=== PATIENT | female | born 1990 | race Caucasian/White ===

== ENCOUNTER → 2022-09-10 11:26 | Outpatient (BNVA) | payer OTHER, SELFPAY | PROVIDERS: Visit Provider Nurse Practitioner Psychiatric/Mental Health | DX: Z03.89 Encounter for observation for other suspected diseases and conditions ruled out (principal); Z51.81 Encounter for therapeutic drug level monitoring | CPT/HCPCS: 80307; 81025 ==

== ENCOUNTER 2025-08-17 12:49 | Emergency (ER) | payer BC, MEDICAID, SELFPAY ==
[2025-08-17 12:54] VITALS: BP 102/76; PULSE 80; TEMP 36.8; O2SAT 98
--- OUTSIDE RECORDS SUMMARY | 2025-08-17 12:55 | XMS_ITS | Encounter Summary ---
Author Organization [facility] Address [address] [place] [address] Care Team Providers Care Coordinator Cardiopulmonary Services Name Role Phone Provider, No Pcp Primary Care Provider Unavailab le Encounter Details Date Type Department Care Team (Latest Contact Info) Description 08/16/2025 Travel Social History Tobacco Use Types Packs/Day Years Used Date Smoking Tobacco: Some Days Cigarettes Smokeless Tobacco: Never AUDIT-C Answer Date Recorded Q1: How often do you have a drink containing alc ohol? 2-4 times a month 08/02/2025 Q2: How many drinks containi ng alcohol do you have on a typical day when you are drinking? 3 or 4 08/02/2025 Q3: How often do you have si x or more drinks on one occasion? Never 08/02/2025 Overall Financial Resource Strain (CARDIA) Answe r Date Recorded How hard is it for you to pa y for the very basics like food, housing, medical care, and heating? Not hard at all 08/02/2025 [facility] - Occupational Stress Questionnaire Answer Date Recorded Do you feel stress - tense, restless, nervous, or anxious, or unable to sleep at night because your mind is troubled all the time - these days? Not at all 08/02/2025 Hunger Vital Sign Answer Date Recorded Within the past 12 months, y ou worried that your food would run out before you got the money to buy more. Never true 08/02/20 25 Within the past 12 months, t he food you bought just didn't last and you didn't have money to get more. Never true 08/02/2025 PRAPARE - Transportation Answer Date Re corded In the past 12 months, has l ack of transportation kept you from medical appointments or from getting medications? No 07/18 In the past 12 months, has l ack of transportation kept you from meetings, work, or from getting things needed for daily living? No 08/02/2025 Housing Stability Vital Sign Answer Markell e Recorded In the last 12 months, was t here a time when you were not able to pay the mortgage or rent on time? No 08/02/2025 In the past 12 months, how m any times have you moved where you were living? 1 08/02/2025 At any time in the past 12 m [facility] [place] were you homeless or living in a long-term (including now)? No 08/02/2025 Comments No Sex and Gender Information Value Date Recorded Sex Assigned at Not on file Legal Sex Female 7:00 PM CDT Gender Identity Not on file Sexual Orientation Not on file documented as of this encounter Functional Status * Is person deaf or have serious hearing difficulty? Answer Date of Assessment Author No 07/31/2025 12:44 AM CDT Nakita Morin RN * Is person blind or have serious difficulty seeing? Answer Date of Assessment Author No 07/31/2025 12:44 AM CDT Nakita Morin RN * Does person have serious difficulty walking/climbing stairs? Answer Date of Assessment Author No 07/31/2025 12:44 AM ZENAIDAT Nakita Morin RN * Does person have difficulty dressing/bathing? Answer Date of Assessment Author No 07/31/2025 12:44 AM ZENAIDAT Nakita Morin RN * Does person have difficulty doing errands alone? Answer Date of Assessment Author No 07/31/2025 12:44 AM ZENAIDAT Nakita Morin RN documented as of this encounter Mental Status * Does person have difficulty concentrating/remembering/making decisions? Answer Entry Date Author No 07/31/2025 12:44 AM Nakita Borja RN documented in this encounter Plan of Treatment Upcoming Encounters Date Type Department Care Team (Late st Contact Info) Description 09/01/2025 12:00 PM CDT Clinical Support [facility] - General Surgery [address] [place] [address], [place] [address] documented as of this encounter Visit Diagnoses Not on filedocumented in this encounter Care Teams Coordinator Cardiopulmonary Services Relationship Specialty Start Date End Date Provider, No Pcp PCP - General 07/30/25 documented as of this encounter
--- OUTSIDE RECORDS SUMMARY | 2025-08-17 12:55 | XMS_ITS | Clinical Summary ---
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 hypoattenuating hepatic lesion is too small to characterize, but likely represents a hepatic cyst. Gallbladder and Bile Ducts: Dense material is seen at the gallbladder fundus by a fold (image 58, series 3), may represent minimal sludge or stone. No gallbladder wall thickening. Spleen: Normal. Pancreas: Normal. Adrenals: Normal. Kidneys: Nonobstructive stone in the left kidney. Otherwise, the kidneys enhance symmetrically. No hydronephrosis. Gastrointestinal: Oral contrast material opacifies the stomach, multiple loops of small bowel, the ascending colon, and rectum. There is no evidence of oral contrast extravasation. Bowel loops are nondilated. There is colonic diverticulosis without diverticulitis. Normal appendix. Mesentery/Peritoneum/Retroperitoneum: Redemonstrated mesenteric contusions in the central and right lower quadrant mesentery (images 81, 99 and 106, series 3), not significant changed. There is small volume hemoperitoneum in the pelvis, increased in size when compared to prior. No free air. Bladder: Opacified with contrast material. Reproductive Organs: The uterus is normal. Vasculature: No vascular abnormality is present. Bones: Bone windows demonstrate no suspicious lytic or blastic lesions. The visible osseous structures are intact. Soft tissues: Soft tissue contusions along the lower ventral abdominal wall and right flank. Small fat-containing umbilical hernia. Procedure Note Aliya Garcia MD - 07/31/2025 PROCEDURE: CT ABDOMEN PELVIS W CONTRAST, DATE/TIME OF EXAM: 07/31/2025 4:27 AM, LOCATION [facility] INDICATION: T14.90XA: Trauma ADDITIONAL CLINICAL INFORMATION: Ordering Provider Reason For Exam: Blunt abdominal trauma. Technologist Note: Additional: COMPARISON: 07/30/2025 CT chest abdomen pelvis TECHNIQUE: CT of the abdomen and pelvis was performed following the uneventful administration of oral contrast and 100 mL of Isovue 370 intravenous contrast according to standard protocol. Findings: Lower Chest: Normal. Liver: A subcentimeter hypoattenuating hepatic lesion is too small to characterize, but likely represents a hepatic cyst. Gallbladder and Bile Ducts: Dense material is seen at the gallbladder fundus by a fold(image 58, series 3), may represent minimal sludge or stone. No gallbladderwall thickening. Spleen: Normal. Pancreas: Normal. Adrenals: Normal. Kidneys: Nonobstructive stone in the left kidney. Otherwise, the kidneys enhance symmetrically. No hydronephrosis. Gastrointestinal: Oral contrast material opacifies the stomach, multiple loops of small bowel, the ascending colon, and rectum. There is no evidence of oral contrast extravasation. Bowel loops are nondilated. There is colonic diverticulosis without diverticulitis. Normal appendix. Mesentery/Peritoneum/Retroperitoneum: Redemonstrated mesenteric contusions in the central and right lower quadrant mesentery (images 81, 99 and 106, series 3), not significant changed. There is small volume hemoperitoneum in the pelvis, increasedin size when compared to prior. No free air. Bladder: Opacified with contrast material. Reproductive Organs: The uterus is normal. Vasculature: No vascular abnormality is present. Bones: Bone windows demonstrate no suspicious lytic or blastic lesions. The visible osseous structures are intact. Soft tissues: Soft tissue contusions along the lower ventral abdominal wall and right flank. Small fat-containing umbilical hernia. Impression: 1.Mesenteric contusions in the central and right lower quadrantmesentery, not significantly changed, with interval mild increase in size of small volume hemoperitoneum within the pelvis. No pneumoperitoneum. 2.Oral contrast scattered throughout the GI tract without evidence of contrast extravasation. No evidence of bowel ischemia. > Dictated by Randal Rivas MD (vice president tax). > Dictated by Cloth Packer Stephanie Treadwell MD have personally reviewed and interpreted this examination/study. > Interpreting Provider: Stephanie Garcia MD on 07/31/2025 11:28 AM Kike Busch MD CT ORDERABLES Final Result * (ABNORMAL) URINALYSIS REFLEX TO MICROSCOPIC NO CULTURE (07/31/2025 4:[address] [facility]) Color UA Yellow Yellow, Straw 07/31/2025 4:32 AM [facility] Clarity UA Clear Clear 07/31/2025 4:32 AM [facility] Glucose UA Normal Normal 07/31/2025 4:32 AM [facility] Bilirubin UA Negative Negative 07/31/2025 4:32 AM [facility] Ketone UA Negative Negative 07/31/2025 4:32 AM [facility] Specific [place] UA 1.037(H) 1.005 - 1.030 07/31/2025 4:32 AM [facility] Blood UA 1+(A) Negative 07/31/2025 4:32 AM [facility] pH UA 6.0 5.0 - 8.0 07/31/2025 4:32 AM [facility] Protein UA Negative Negative 07/31/2025 4:32 AM [facility] Urobilinogen UA Normal Normal mg/dL 025 4:32 AM [facility] Nitrite UA Negative Negative 07/31/2025 4:32 AM [facility] Leukocyte Esterase UA Negative Negative 07/31/2025 4:32 AM [facility] RBC UA 21-50(A) 0 - 5 # /hpf 07/31/2025 4:32 AM [facility] WBC UA 0-5 0 - 5 # /hpf 07/31/2025 4:32 AM [facility] Bacteria UA None Seen None Seen 07/31/2025 4:32 AM [facility] Squamous Epithelial Cells 6-10 0 - 5 /hpf 07/31/2025 4:32 AM [facility] Mucus UA 1+ /LPF 07/31/2025 4:32 AM [facility] Hyaline Casts 0-2 0 - 2 /LPF 07/31/2025 4:32 AM [facility] Urine URINE SPECIMEN OBTAINED BY CLEAN CATCH PROCEDURE / Unknown Collection / Unknown 07/31/2025 4:02 AM CDT 07/31/2025 4:06 AM CDT Narrative [facility] - 07/31/2025 4:32 AM CDT Trino Mead DO LAB - URINALYSIS ORDERABLES Final Result [facility] [address] [place] [address], [facility] [phone] * (ABNORMAL) URINE DRUG SCREEN IMMUNOASSAY (07/31/2025 4:02 AM CDT) [facility] Amphetamines Screen Urine Negative Negative : < 1000 ng/mL 07/31/2025 4:34 AM [facility] Barbiturates Screen Urine Negative Negative : < 200 ng/mL 07/31/2025 4:34 AM [facility] Benzodiazepine Screen Urine Negative Negative : < 200 ng/mL 07/31/2025 4:34 AM [facility] Opiates Urine Negative Negative : < 300 ng/mL 07/31/2025 4:34 AM [facility] Cocaine Metabolites Urine Negative Negative : < 300 ng/mL 07/31/2025 4:34 AM [facility] Phencyclidine Screen Urine Negative Negative : < 25 ng/ml 07/31/2025 4:34 AM [facility] Cannabinoids Screen Urine Negative Negative : <50 ng/mL 07/31/2025 4:34 AM [facility] Methadone Screen Urine Negative Negative : < 300 ng/mL 07/31/2025 4:34 AM [facility] Fentanyl Screen Urine Positive(A) Negative : <1.5 ng/mL 07/31/2025 4:34 AM [facility] Comment:Positive urine fenta nyl screening results should be confirmed by another generally accepted non-immunological method such as gas chromatography or mass spectrometry. Urine URINE / Unknown Collection / Unknown 07/31/2025 4:02 AM CDT 07/31/2025 4:07 AM CDT Narrative [facility] - 07/31/2025 4:34 AM CDT The Urine Toxicology Screening Panel does not screen for Propoxyphene, Meprobamate, Carisoprodol, Trazodone, [id number] medications and/or volatiles (Acetone, Isopropanol, Methanol or Ethylene Glycol). Ethanol, Salicylate, Acetaminophen, Tricyclic Antidepressants and several therapeutic drugs may be individually assayed in serum or plasma specimen. Toxicology testing by the [facility] is an aid to medical diagnosis and treatment of patients. No documented chain of custody was maintained. Results are intended to be used for clinical purposes only. Kike Busch MD LAB - URINE CHEMISTRY ORDERABL ES Final Result Performing Organization Address City/[facility]/ZIP Co de Phone Number [facility] [address] [place] [address], [facility] [phone] * BLOOD TYPE VERIFICATION (07/31/2025 12:18 AM CDT) ABO Rh A POS 07/31/2025 1:2 3 AM CDT [facility] Blood Bank BLOOD SPECIMEN / Unknown Lab Venipuncture / Unknown 07/31/2025 12:18 AM CDT 07/31/2025 12:38 AM CDT Trino Mead DO LAB - BLOOD BANK ORDERABLES Final Result Performing Organization Address [facility] de Phone Number [facility] [address] [place] [address], [facility] [phone] * CT CHEST ABDOMEN PELVIS W CONT - Abdomen-pelvis trauma, blunt or penetrating (07/30/2025 7:44 PM CDT) Anatomical Region Laterality Modality Chest, Abdomen, Pelvis Computed Tomography 07/30/2025 7:54 PM CDT Impressions 07/30/2025 11:25 PM CDT Impression: 1.Mesenteric fat stranding in the mid abdomen around mesenteric vessels (Series 4, Image 89) and lower abdomen (Series 4, Image 106). Small volume interloop fluid in the right lower quadrant (Series 4, Image 95) (Series 9, Image 64). Small volume fluid within the pelvis measuring higher than simple fluid density. Findings concerning for mesenteric contusion/injury. 2.Suggestion of nondisplaced fractures of the left 8th-10th ribs at the costochondral junctions. Recommend correlation with point tenderness. 3.Contusion within the lower ventral abdominal wall and right flank soft tissues. Preliminary findings were discussed with the patient's care provider, Dr. Cardona by Dr. Sanders via telephone at 8:28 PM on 07/30/2025 with readback comprehension and verification. > Dictated by Sanjuana Sanders MD > Dictated by Cloth Packer IStephanie MD have personally reviewed and interpreted this examination/study. > Interpreting Provider: Stephanie Garcia MD on 07/30/2025 11:25 PM Narrative 07/30/2025 11:25 PM CDT PROCEDURE: CT CHEST ABDOMEN PELVIS W CONT, DATE/TIME OF EXAM: 07/30/2025 7:45 PM, LOCATION [facility] INDICATION: T14.90XA: Trauma COMPARISON: None. TECHNIQUE: CT of the chest, abdomen, and pelvis was performed after the uneventful administration of 100 mL of Isovue 370 intravenous contrast according to standard protocol. Findings: Chest: Lower Neck and Axillae: Normal. Lungs: Bilateral dependent atelectasis. No suspicious pulmonary nodules are identified. No pleural fluid or pneumothorax is present. Heart and Pericardium: The cardiac chambers are normal in size. No pericardial fluid or thickening is present. Mediastinum and Susi: No mediastinal hemorrhage is present. No enlarged lymph nodes are present. Thoracic Vasculature: No vascular abnormality is present. Abdomen/pelvis: Liver: Multiple subcentimeter hypoattenuating hepatic lesions are too small to characterize, but likely represent hepatic cysts. Gallbladder and Bile Ducts: Normal. Spleen: Normal. Pancreas: Normal. Adrenals: Normal. Kidneys: A subcentimeter hypoattenuating lesion in the left kidney is too small to characterize, but likely represents a cyst. A 2 mm left superior pole nonobstructive calculus is present. Gastrointestinal/Mesentery/Peritoneum: Mesenteric fat stranding in the mid abdomen around mesenteric vessels (Series 4, Image 89) and lower abdomen (Series 4, Image 106). Small volume interloop fluid in the right lower quadrant (Series 4, Image 95) (Series 9, Image 64). Small volume fluid within the pelvis measuring higher than simple fluid density. Normal appendix. Multiple prominent mesenteric lymph nodes. Diverticulosis without diverticulitis. Bladder: Normal. Reproductive Organs: Uterus is normal. Abdominal Vasculature: No vascular abnormality is present. Bones: Bone windows demonstrate no suspicious lytic or blastic lesions. The visible osseous structures are intact. Suggestion of nondisplaced fractures of the left 8th-10th ribs at the costochondral junctions. Recommend correlation with point tenderness. Soft tissues: Contusion within the lower ventral abdominal wall and right flank soft tissues. Small fat-containing umbilical hernia. Procedure Note Aliya Garcia MD - 07/30/2025 PROCEDURE: CT CHEST ABDOMEN PELVIS W CONT, DATE/TIME OF EXAM:07/30/2025 7:45 PM, LOCATION [facility] INDICATION: T14.90XA: Trauma COMPARISON: None. TECHNIQUE: CT of the chest, abdomen, and pelvis was performed after the uneventful administration of 100 mL of Isovue 370 intravenous contrast according to standard protocol. Findings: Chest: Lower Neck and Axillae: Normal. Lungs: Bilateral dependent atelectasis. No suspicious pulmonary nodules are identified. No pleural fluid or pneumothorax is present. Heart and Pericardium: The cardiac chambers are normal in size. No pericardial fluid orthickening is present. Mediastinum and Susi: No mediastinal hemorrhage is present. No enlarged lymph nodes arepresent. Thoracic Vasculature: No vascular abnormality is present. Abdomen/pelvis: Liver: Multiple subcentimeter hypoattenuating hepatic lesions are too small to characterize, but likely represent hepatic cysts. Gallbladder and Bile Ducts: Normal. Spleen: Normal. Pancreas: Normal. Adrenals: Normal. Kidneys: A subcentimeter hypoattenuating lesion in the left kidney is too smallto characterize, but likely represents a cyst. A 2 mm left superior pole nonobstructive calculus is present. Gastrointestinal/Mesentery/Peritoneum: Mesenteric fat stranding in the mid abdomen around mesenteric vessels (Series 4, Image 89) and lower abdomen (Series 4, Image 106). Smallvolume interloop fluid in the right lower quadrant (Series 4, Image 95) (Series9, Image 64). Small volume fluid within the pelvis measuring higher than simple fluid density. Normal appendix. Multiple prominent mesentericlymph nodes. Diverticulosis without diverticulitis. Bladder: Normal. Reproductive Organs: Uterus is normal. Abdominal Vasculature: No vascular abnormality is present. Bones: Bone windows demonstrate no suspicious lytic or blastic lesions. The visible osseous structures are intact. Suggestion of nondisplacedfractures of the left 8th-10th ribs at the costochondral junctions. Recommend correlation with point tenderness. Soft tissues: Contusion within the lower ventral abdominal wall and right flank soft tissues. Small fat-containing umbilical hernia. Impression: 1.Mesenteric fat stranding in the mid abdomen around mesenteric vessels (Series 4, Image 89) and lower abdomen (Series 4, Image 106). Smallvolume interloop fluid in the right lower quadrant (Series 4, Image 95) (Series9, Image 64). Small volume fluid within the pelvis measuring higher than simple fluid density. Findings concerning for mesentericcontusion/injury. 2.Suggestion of nondisplaced fractures of the left 8th-10th ribs at the costochondral junctions. Recommend correlation with point tenderness. 3.Contusion within the lower ventral abdominal wall and right flank soft tissues. Preliminary findings were discussed with the patient's care provider,Dr. Cardona by Dr. Sanders via telephone at 8:28 PM on 07/30/2025 with readback comprehension and verification. > Dictated by Sanjuana Sanders MD > Dictated by Cloth Packer IStephanie MD have personally reviewed and interpreted this examination/study. > Interpreting Provider: Stephanie Garcia MD on 07/30/2025 11:25 PM us Kike Busch MD CT ORDERABLES Final Result * CT LUMBAR SPINE WO CONTRAST - T/L-spine trauma, Spine fracture (07/30/2025 7:44 PM CDT) Anatomical Region Laterality Modality Spine Computed Tomogra phy 07/30/2025 7:48 PM CDT Impressions 07/30/2025 9:23 PM CDT IMPRESSION: 1.No acute intracranial hemorrhage, midline shift, or significant mass effect. 2.No evidence of acute fracture in the cervical, thoracic, or lumbar spine. 3.Degenerative changes as above including severe central canal stenosis at C5-C6. These findings were discussed in detail with the patient's care provider, Dr. Bob by Dr. Rodriguez via telephone at 7:57 PM on 07/30/2025 with readback comprehension and verification. > Dictated by Arie Rodriguez MD, (vice president tax) 07/30/2025 7:48 PM. > Dictated by Cloth Packer I, Allegra Ness MD have personally reviewed and interpreted this examination/study. > Interpreting Provider: Allegra Ness MD on 07/30/2025 9:23 PM Narrative 07/30/2025 9:23 PM CDT PROCEDURE: CT HEAD WO CONTRAST, CT LUMBAR SPINE WO CONTRAST, CT THORACIC SPINE WO CONTRAST, CT CERVICAL SPINE WO CONTRAST, DATE/TIME OF EXAM: 07/30/2025 7:45 PM, LOCATION [facility] INDICATION: T14.90XA: Trauma EXAMINATION: 1.Computed tomography (CT) of the head without contrast 2.CT of the cervical spine without contrast 3.CT of the thoracic spine without contrast 4.CT of the lumbar spine without contrast ADDITIONAL CLINICAL INFORMATION: Ordering Provider Reason For Exam: Trauma. Technologist Note: None. Additional: None. TECHNIQUE: CT of the head and cervical spine was performed without contrast according to standard protocol. Reformatted axial, sagittal, and coronal images of the thoracic and lumbar spine were obtained by the technologist from a concurrently performed body CT and sent to the workstation for review. CT dose reduction technique was used, including Automated Exposure Control. COMPARISON: No prior study is available for comparison at the time of this dictation. FINDINGS: Head: No acute intra- or extra-axial fluid collections are identified. The ventricles are of normal size, shape, and morphology. The basilar cisterns are patent. No mass effect or midline shift is seen. The gomez-white matter differentiation is normal. No acute calvarial fracture is identified..The orbits appear normal. The paranasal sinuses are clear..The mastoid air cells are clear. No soft tissue abnormality is identified. Cervical spine: Motion and quantum mottle artifacts are limiting factors in the evaluation of the lower cervical and upper thoracic spine. There is gentle cervical kyphosis. Trace anterolisthesis of C4 on C5. Vertebral bodies are normal in height without evidence of acute fracture. The craniocervical junction is normal. There is mild degenerative disc disease. Up to moderate or moderate to severe central canal stenosis at C5-C6. Evaluation is however significantly limited due to motion and quantum mottle artifacts. There are varying degrees of mild facet osteoarthritis. There are varying degrees of mild uncovertebral joint osteoarthritis. No high-grade neural foraminal stenosis is seen. No soft tissue abnormality is identified. Thoracic spine: The alignment is normal. Bones are osteopenic. Anterior wedging deformity of the T6 vertebral body with loss of 30% of vertebral body height anteriorly. No definite fracture line. Please correlate with point tenderness if there is clinical concern. The remaining vertebral bodies are normal in height without evidence of acute fracture. The intervertebral discs appear normal. No central canal stenosis is seen. The facets appear normal. No neural foraminal stenosis is seen. There is subsegmental atelectasis and the adjacent small areas of consolidation noted in the dependent portions of the lung bases. Lumbar spine: The alignment is normal. Vertebral bodies are normal in height without evidence of acute fracture. The intervertebral discs appear normal. No central canal stenosis is seen. The facets appear normal. No neural foraminal stenosis is seen. No soft tissue abnormality is identified. Brain injury guidelines: Skull fracture: No Subdural hematoma: No subdural hematoma. Epidural hematoma: No epidural hematoma. Intraparenchymal hemorrhage: No intraparenchymal hemorrhage. Subarachnoid hemorrhage: No subarachnoid hemorrhage. Intraventricular hemorrhage: No. Midline shift: No Procedure Note Allegra Ness MD - 07/30/2025 PROCEDURE: CT HEAD WO CONTRAST, CT LUMBAR SPINE WO CONTRAST, CTTHORACIC SPINE WO CONTRAST, CT CERVICAL SPINE WO CONTRAST, DATE/TIME OF EXAM: 07/30/2025 7:45 PM, LOCATION [facility] INDICATION: T14.90XA: Trauma EXAMINATION: 1.Computed tomography (CT) of the head without contrast 2.CT of the cervical spine without contrast 3.CT of the thoracic spine without contrast 4.CT of the lumbar spine without contrast ADDITIONAL CLINICAL INFORMATION: Ordering Provider Reason For Exam: Trauma. Technologist Note: None. Additional: None. TECHNIQUE: CT of the head and cervical spine was performed withoutcontrast according to standard protocol. Reformatted axial, sagittal, and coronal images of the thoracic and lumbar spine were obtained by thetechnologist from a concurrently performed body CT and sent to the workstation for review. CT dose reduction technique was used, including AutomatedExposure Control. COMPARISON: No prior study is available for comparison at the time ofthis dictation. FINDINGS: Head: No acute intra- or extra-axial fluid collections are identified. The ventricles are of normal size, shape, and morphology. The basilarcisterns are patent. No mass effect or midline shift is seen. The gomez-whitematter differentiation is normal. No acute calvarial fracture is identified..The orbits appear normal. The paranasal sinuses are clear..The mastoid air cells are clear. No soft tissue abnormality is identified. Cervical spine: Motion and quantum mottle artifacts are limiting factorsin the evaluation of the lower cervical and upper thoracic spine. There is gentle cervical kyphosis. Trace anterolisthesis of C4 on C5. Vertebral bodies are normal in height without evidence of acutefracture. The craniocervical junction is normal. There is mild degenerative disc disease. Up to moderate or moderate to severe central canal stenosis at C5-C6. Evaluation is however significantly limited due to motion and quantum mottle artifacts. There are varying degrees of mild facet osteoarthritis. There are varying degrees of mild uncovertebral joint osteoarthritis. No high-grade neural foraminal stenosis is seen. No soft tissue abnormality is identified. Thoracic spine: The alignment is normal. Bones are osteopenic. Anterior wedgingdeformity of the T6 vertebral body with loss of 30% of vertebral body height anteriorly. No definite fracture line. Please correlate with point tenderness if there is clinical concern. The remaining vertebral bodiesare normal in height without evidence of acute fracture. The intervertebral discs appear normal. No central canal stenosis is seen. The facetsappear normal. No neural foraminal stenosis is seen. There is subsegmental atelectasis and the adjacent small areas of consolidation noted in the dependent portions of the lung bases. Lumbar spine: The alignment is normal. Vertebral bodies are normal in height without evidence of acute fracture. The intervertebral discs appear normal. No central canal stenosis is seen. The facets appear normal. No neural foraminal stenosis is seen. No soft tissue abnormality is identified. Brain injury guidelines: Skull fracture: No Subdural hematoma: No subdural hematoma. Epidural hematoma: No epidural hematoma. Intraparenchymal hemorrhage: No intraparenchymal hemorrhage. Subarachnoid hemorrhage: No subarachnoid hemorrhage. Intraventricular hemorrhage: No. Midline shift: No IMPRESSION: 1.No acute intracranial hemorrhage, midline shift, or significant mass effect. 2.No evidence of acute fracture in the cervical, thoracic, or lumbarspine. 3.Degenerative changes as above including severe central canal stenosisat C5-C6. These findings were discussed in detail with the patient's careprovider, Dr. Bob by Dr. Rodriguez via telephone at 7:57 PM on 07/30/2025 with readback comprehension and verification. > Dictated by Arie Rodriguez MD, (vice president tax) 07/30/2025 7:48 PM. > Dictated by Cloth Packer Allegra Treadwell MD have personally reviewed and interpretedthis examination/study. > Interpreting Provider: Allegra Ness MD on 07/30/2025 9:23 PM Kike Busch MD CT ORDERABLES Final Result * CT THORACIC SPINE WO CONTRAST - T/L-spine trauma, spine fracture (07/30/2025 7:44 PM CDT) Anatomical Region Laterality Modality Spine Computed Tomogra phy 07/30/2025 7:48 PM CDT Impressions 07/30/2025 9:23 PM CDT IMPRESSION: 1.No acute intracranial hemorrhage, midline shift, or significant mass effect. 2.No evidence of acute fracture in the cervical, thoracic, or lumbar spine. 3.Degenerative changes as above including severe central canal stenosis at C5-C6. These findings were discussed in detail with the patient's care provider, Dr. Bob by Dr. Rodriguez via telephone at 7:57 PM on 07/30/2025 with readback comprehension and verification. > Dictated by Arie Rodriguez MD, (vice president tax) 07/30/2025 7:48 PM. > Dictated by Cloth Packer Allegra Treadwell MD have personally reviewed and interpreted this examination/study. > Interpreting Provider: Allegra Ness MD on 07/30/2025 9:23 PM Narrative 07/30/2025 9:23 PM CDT PROCEDURE: CT HEAD WO CONTRAST, CT LUMBAR SPINE WO CONTRAST, CT THORACIC SPINE WO CONTRAST, CT CERVICAL SPINE WO CONTRAST, DATE/TIME OF EXAM: 07/30/2025 7:45 PM, LOCATION [facility] INDICATION: T14.90XA: Trauma EXAMINATION: 1.Computed tomography (CT) of the head without contrast 2.CT of the cervical spine without contrast 3.CT of the thoracic spine without contrast 4.CT of the lumbar spine without contrast ADDITIONAL CLINICAL INFORMATION: Ordering Provider Reason For Exam: Trauma. Technologist Note: None. Additional: None. TECHNIQUE: CT of the head and cervical spine was performed without contrast according to standard protocol. Reformatted axial, sagittal, and coronal images of the thoracic and lumbar spine were obtained by the technologist from a concurrently performed body CT and sent to the workstation for review. CT dose reduction technique was used, including Automated Exposure Control. COMPARISON: No prior study is available for comparison at the time of this dictation. FINDINGS: Head: No acute intra- or extra-axial fluid collections are identified. The ventricles are of normal size, shape, and morphology. The basilar cisterns are patent. No mass effect or midline shift is seen. The gomez-white matter differentiation is normal. No acute calvarial fracture is identified..The orbits appear normal. The paranasal sinuses are clear..The mastoid air cells are clear. No soft tissue abnormality is identified. Cervical spine: Motion and quantum mottle artifacts are limiting factors in the evaluation of the lower cervical and upper thoracic spine. There is gentle cervical kyphosis. Trace anterolisthesis of C4 on C5. Vertebral bodies are normal in height without evidence of acute fracture. The craniocervical junction is normal. There is mild degenerative disc disease. Up to moderate or moderate to severe central canal stenosis at C5-C6. Evaluation is however significantly limited due to motion and quantum mottle artifacts. There are varying degrees of mild facet osteoarthritis. There are varying degrees of mild uncovertebral joint osteoarthritis. No high-grade neural foraminal stenosis is seen. No soft tissue abnormality is identified. Thoracic spine: The alignment is normal. Bones are osteopenic. Anterior wedging deformity of the T6 vertebral body with loss of 30% of vertebral body height anteriorly. No definite fracture line. Please correlate with point tenderness if there is clinical concern. The remaining vertebral bodies are normal in height without evidence of acute fracture. The intervertebral discs appear normal. No central canal stenosis is seen. The facets appear normal. No neural foraminal stenosis is seen. There is subsegmental atelectasis and the adjacent small areas of consolidation noted in the dependent portions of the lung bases. Lumbar spine: The alignment is normal. Vertebral bodies are normal in height without evidence of acute fracture. The intervertebral discs appear normal. No central canal stenosis is seen. The facets appear normal. No neural foraminal stenosis is seen. No soft tissue abnormality is identified. Brain injury guidelines: Skull fracture: No Subdural hematoma: No subdural hematoma. Epidural hematoma: No epidural hematoma. Intraparenchymal hemorrhage: No intraparenchymal hemorrhage. Subarachnoid hemorrhage: No subarachnoid hemorrhage. Intraventricular hemorrhage: No. Midline shift: No Procedure Note Allegra Ness MD - 07/30/2025 PROCEDURE: CT HEAD WO CONTRAST, CT LUMBAR SPINE WO CONTRAST, CTTHORACIC SPINE WO CONTRAST, CT CERVICAL SPINE WO CONTRAST, DATE/TIME OF EXAM: 07/30/2025 7:45 PM, LOCATION [facility] INDICATION: T14.90XA: Trauma EXAMINATION: 1.Computed tomography (CT) of the head without contrast 2.CT of the cervical spine without contrast 3.CT of the thoracic spine without contrast 4.CT of the lumbar spine without contrast ADDITIONAL CLINICAL INFORMATION: Ordering Provider Reason For Exam: Trauma. Technologist Note: None. Additional: None. TECHNIQUE: CT of the head and cervical spine was performed withoutcontrast according to standard protocol. Reformatted axial, sagittal, and coronal images of the thoracic and lumbar spine were obtained by thetechnologist from a concurrently performed body CT and sent to the workstation for review. CT dose reduction technique was used, including AutomatedExposure Control. COMPARISON: No prior study is available for comparison at the time ofthis dictation. FINDINGS: Head: No acute intra- or extra-axial fluid collections are identified. The ventricles are of normal size, shape, and morphology. The basilarcisterns are patent. No mass effect or midline shift is seen. The gomez-whitematter differentiation is normal. No acute calvarial fracture is identified..The orbits appear normal. The paranasal sinuses are clear..The mastoid air cells are clear. No soft tissue abnormality is identified. Cervical spine: Motion and quantum mottle artifacts are limiting factorsin the evaluation of the lower cervical and upper thoracic spine. There is gentle cervical kyphosis. Trace anterolisthesis of C4 on C5. Vertebral bodies are normal in height without evidence of acutefracture. The craniocervical junction is normal. There is mild degenerative disc disease. Up to moderate or moderate to severe central canal stenosis at C5-C6. Evaluation is however significantly limited due to motion and quantum mottle artifacts. There are varying degrees of mild facet osteoarthritis. There are varying degrees of mild uncovertebral joint osteoarthritis. No high-grade neural foraminal stenosis is seen. No soft tissue abnormality is identified. Thoracic spine: The alignment is normal. Bones are osteopenic. Anterior wedgingdeformity of the T6 vertebral body with loss of 30% of vertebral body height anteriorly. No definite fracture line. Please correlate with point tenderness if there is clinical concern. The remaining vertebral bodiesare normal in height without evidence of acute fracture. The intervertebral discs appear normal. No central canal stenosis is seen. The facetsappear normal. No neural foraminal stenosis is seen. There is subsegmental atelectasis and the adjacent small areas of consolidation noted in the dependent portions of the lung bases. Lumbar spine: The alignment is normal. Vertebral bodies are normal in height without evidence of acute fracture. The intervertebral discs appear normal. No central canal stenosis is seen. The facets appear normal. No neural foraminal stenosis is seen. No soft tissue abnormality is identified. Brain injury guidelines: Skull fracture: No Subdural hematoma: No subdural hematoma. Epidural hematoma: No epidural hematoma. Intraparenchymal hemorrhage: No intraparenchymal hemorrhage. Subarachnoid hemorrhage: No subarachnoid hemorrhage. Intraventricular hemorrhage: No. Midline shift: No IMPRESSION: 1.No acute intracranial hemorrhage, midline shift, or significant mass effect. 2.No evidence of acute fracture in the cervical, thoracic, or lumbarspine. 3.Degenerative changes as above including severe central canal stenosisat C5-C6. These findings were discussed in detail with the patient's careprovider, Dr. Bob by Dr. Rodriguez via telephone at 7:57 PM on 07/30/2025 with readback comprehension and verification. > Dictated by Arie Rodriguez MD, (vice president tax) 07/30/2025 7:48 PM. > Dictated by Cloth Packer I, Allegra Ness MD have personally reviewed and interpretedthis examination/study. > Interpreting Provider: Allegra Ness MD on 07/30/2025 9:23 PM us Kike Busch MD CT ORDERABLES Final Result * CT CERVICAL SPINE WO CONTRAST - C-Spine Trauma, Spine fracture (07/30/2025 7:44 PM CDT) Anatomical Region Laterality Modality Spine Computed Tomogra phy 07/30/2025 7:48 PM CDT Impressions 07/30/2025 9:23 PM CDT IMPRESSION: 1.No acute intracranial hemorrhage, midline shift, or significant mass effect. 2.No evidence of acute fracture in the cervical, thoracic, or lumbar spine. 3.Degenerative changes as above including severe central canal stenosis at C5-C6. These findings were discussed in detail with the patient's care provider, Dr. Bob by Dr. Rodriguez via telephone at 7:57 PM on 07/30/2025 with readback comprehension and verification. > Dictated by Arie Rodriguez MD, (vice president tax) 07/30/2025 7:48 PM. > Dictated by Cloth Packer I, Allegra Ness MD have personally reviewed and interpreted this examination/study. > Interpreting Provider: Allegra Ness MD on 07/30/2025 9:23 PM Narrative 07/30/2025 9:23 PM CDT PROCEDURE: CT HEAD WO CONTRAST, CT LUMBAR SPINE WO CONTRAST, CT THORACIC SPINE WO CONTRAST, CT CERVICAL SPINE WO CONTRAST, DATE/TIME OF EXAM: 07/30/2025 7:45 PM, LOCATION [facility] INDICATION: T14.90XA: Trauma EXAMINATION: 1.Computed tomography (CT) of the head without contrast 2.CT of the cervical spine without contrast 3.CT of the thoracic spine without contrast 4.CT of the lumbar spine without contrast ADDITIONAL CLINICAL INFORMATION: Ordering Provider Reason For Exam: Trauma. Technologist Note: None. Additional: None. TECHNIQUE: CT of the head and cervical spine was performed without contrast according to standard protocol. Reformatted axial, sagittal, and coronal images of the thoracic and lumbar spine were obtained by the technologist from a concurrently performed body CT and sent to the workstation for review. CT dose reduction technique was used, including Automated Exposure Control. COMPARISON: No prior study is available for comparison at the time of this dictation. FINDINGS: Head: No acute intra- or extra-axial fluid collections are identified. The ventricles are of normal size, shape, and morphology. The basilar cisterns are patent. No mass effect or midline shift is seen. The gomez-white matter differentiation is normal. No acute calvarial fracture is identified..The orbits appear normal. The paranasal sinuses are clear..The mastoid air cells are clear. No soft tissue abnormality is identified. Cervical spine: Motion and quantum mottle artifacts are limiting factors in the evaluation of the lower cervical and upper thoracic spine. There is gentle cervical kyphosis. Trace anterolisthesis of C4 on C5. Vertebral bodies are normal in height without evidence of acute fracture. The craniocervical junction is normal. There is mild degenerative disc disease. Up to moderate or moderate to severe central canal stenosis at C5-C6. Evaluation is however significantly limited due to motion and quantum mottle artifacts. There are varying degrees of mild facet osteoarthritis. There are varying degrees of mild uncovertebral joint osteoarthritis. No high-grade neural foraminal stenosis is seen. No soft tissue abnormality is identified. Thoracic spine: The alignment is normal. Bones are osteopenic. Anterior wedging deformity of the T6 vertebral body with loss of 30% of vertebral body height anteriorly. No definite fracture line. Please correlate with point tenderness if there is clinical concern. The remaining vertebral bodies are normal in height without evidence of acute fracture. The intervertebral discs appear normal. No central canal stenosis is seen. The facets appear normal. No neural foraminal stenosis is seen. There is subsegmental atelectasis and the adjacent small areas of consolidation noted in the dependent portions of the lung bases. Lumbar spine: The alignment is normal. Vertebral bodies are normal in height without evidence of acute fracture. The intervertebral discs appear normal. No central canal stenosis is seen. The facets appear normal. No neural foraminal stenosis is seen. No soft tissue abnormality is identified. Brain injury guidelines: Skull fracture: No Subdural hematoma: No subdural hematoma. Epidural hematoma: No epidural hematoma. Intraparenchymal hemorrhage: No intraparenchymal hemorrhage. Subarachnoid hemorrhage: No subarachnoid hemorrhage. Intraventricular hemorrhage: No. Midline shift: No Procedure Note Allegra Ness MD - 07/30/2025 PROCEDURE: CT HEAD WO CONTRAST, CT LUMBAR SPINE WO CONTRAST, CTTHORACIC SPINE WO CONTRAST, CT CERVICAL SPINE WO CONTRAST, DATE/TIME OF EXAM: 07/30/2025 7:45 PM, LOCATION [facility] INDICATION: T14.90XA: Trauma EXAMINATION: 1.Computed tomography (CT) of the head without contrast 2.CT of the cervical spine without contrast 3.CT of the thoracic spine without contrast 4.CT of the lumbar spine without contrast ADDITIONAL CLINICAL INFORMATION: Ordering Provider Reason For Exam: Trauma. Technologist Note: None. Additional: None. TECHNIQUE: CT of the head and cervical spine was performed withoutcontrast according to standard protocol. Reformatted axial, sagittal, and coronal images of the thoracic and lumbar spine were obtained by thetechnologist from a concurrently performed body CT and sent to the workstation for review. CT dose reduction technique was used, including AutomatedExposure Control. COMPARISON: No prior study is available for comparison at the time ofthis dictation. FINDINGS: Head: No acute intra- or extra-axial fluid collections are identified. The ventricles are of normal size, shape, and morphology. The basilarcisterns are patent. No mass effect or midline shift is seen. The gomez-whitematter differentiation is normal. No acute calvarial fracture is identified..The orbits appear normal. The paranasal sinuses are clear..The mastoid air cells are clear. No soft tissue abnormality is identified. Cervical spine: Motion and quantum mottle artifacts are limiting factorsin the evaluation of the lower cervical and upper thoracic spine. There is gentle cervical kyphosis. Trace anterolisthesis of C4 on C5. Vertebral bodies are normal in height without evidence of acutefracture. The craniocervical junction is normal. There is mild degenerative disc disease. Up to moderate or moderate to severe central canal stenosis at C5-C6. Evaluation is however significantly limited due to motion and quantum mottle artifacts. There are varying degrees of mild facet osteoarthritis. There are varying degrees of mild uncovertebral joint osteoarthritis. No high-grade neural foraminal stenosis is seen. No soft tissue abnormality is identified. Thoracic spine: The alignment is normal. Bones are osteopenic. Anterior wedgingdeformity of the T6 vertebral body with loss of 30% of vertebral body height anteriorly. No definite fracture line. Please correlate with point tenderness if there is clinical concern. The remaining vertebral bodiesare normal in height without evidence of acute fracture. The intervertebral discs appear normal. No central canal stenosis is seen. The facetsappear normal. No neural foraminal stenosis is seen. There is subsegmental atelectasis and the adjacent small areas of consolidation noted in the dependent portions of the lung bases. Lumbar spine: The alignment is normal. Vertebral bodies are normal in height without evidence of acute fracture. The intervertebral discs appear normal. No central canal stenosis is seen. The facets appear normal. No neural foraminal stenosis is seen. No soft tissue abnormality is identified. Brain injury guidelines: Skull fracture: No Subdural hematoma: No subdural hematoma. Epidural hematoma: No epidural hematoma. Intraparenchymal hemorrhage: No intraparenchymal hemorrhage. Subarachnoid hemorrhage: No subarachnoid hemorrhage. Intraventricular hemorrhage: No. Midline shift: No IMPRESSION: 1.No acute intracranial hemorrhage, midline shift, or significant mass effect. 2.No evidence of acute fracture in the cervical, thoracic, or lumbarspine. 3.Degenerative changes as above including severe central canal stenosisat C5-C6. These findings were discussed in detail with the patient's careprovider, Dr. Bob by Dr. Rodriguez via telephone at 7:57 PM on 07/30/2025 with readback comprehension and verification. > Dictated by Arie Rodriguez MD, (vice president tax) 07/30/2025 7:48 PM. > Dictated by Cloth Packer I, Allegra Ness MD have personally reviewed and interpretedthis examination/study. > Interpreting Provider: Allegra Ness MD on 07/30/2025 9:23 PM us Kike Busch MD CT ORDERABLES Final Result * CT HEAD WO CONTRAST - Head Trauma, CSF leak, mental status changes (07/30/2025 7:44 PM CDT) Anatomical Region Laterality Modality Head Computed Tomogra phy 07/30/2025 7:48 PM CDT Impressions 07/30/2025 9:23 PM CDT IMPRESSION: 1.No acute intracranial hemorrhage, midline shift, or significant mass effect. 2.No evidence of acute fracture in the cervical, thoracic, or lumbar spine. 3.Degenerative changes as above including severe central canal stenosis at C5-C6. These findings were discussed in detail with the patient's care provider, Dr. Bob by Dr. Rodriguez via telephone at 7:57 PM on 07/30/2025 with readback comprehension and verification. > Dictated by Arie Rodriguez MD, (vice president tax) 07/30/2025 7:48 PM. > Dictated by Cloth Packer IAllegra MD have personally reviewed and interpreted this examination/study. > Interpreting Provider: Allegra Ness MD on 07/30/2025 9:23 PM Narrative 07/30/2025 9:23 PM CDT PROCEDURE: CT HEAD WO CONTRAST, CT LUMBAR SPINE WO CONTRAST, CT THORACIC SPINE WO CONTRAST, CT CERVICAL SPINE WO CONTRAST, DATE/TIME OF EXAM: 07/30/2025 7:45 PM, LOCATION [facility] INDICATION: T14.90XA: Trauma EXAMINATION: 1.Computed tomography (CT) of the head without contrast 2.CT of the cervical spine without contrast 3.CT of the thoracic spine without contrast 4.CT of the lumbar spine without contrast ADDITIONAL CLINICAL INFORMATION: Ordering Provider Reason For Exam: Trauma. Technologist Note: None. Additional: None. TECHNIQUE: CT of the head and cervical spine was performed without contrast according to standard protocol. Reformatted axial, sagittal, and coronal images of the thoracic and lumbar spine were obtained by the technologist from a concurrently performed body CT and sent to the workstation for review. CT dose reduction technique was used, including Automated Exposure Control. COMPARISON: No prior study is available for comparison at the time of this dictation. FINDINGS: Head: No acute intra- or extra-axial fluid collections are identified. The ventricles are of normal size, shape, and morphology. The basilar cisterns are patent. No mass effect or midline shift is seen. The gomez-white matter differentiation is normal. No acute calvarial fracture is identified..The orbits appear normal. The paranasal sinuses are clear..The mastoid air cells are clear. No soft tissue abnormality is identified. Cervical spine: Motion and quantum mottle artifacts are limiting factors in the evaluation of the lower cervical and upper thoracic spine. There is gentle cervical kyphosis. Trace anterolisthesis of C4 on C5. Vertebral bodies are normal in height without evidence of acute fracture. The craniocervical junction is normal. There is mild degenerative disc disease. Up to moderate or moderate to severe central canal stenosis at C5-C6. Evaluation is however significantly limited due to motion and quantum mottle artifacts. There are varying degrees of mild facet osteoarthritis. There are varying degrees of mild uncovertebral joint osteoarthritis. No high-grade neural foraminal stenosis is seen. No soft tissue abnormality is identified. Thoracic spine: The alignment is normal. Bones are osteopenic. Anterior wedging deformity of the T6 vertebral body with loss of 30% of vertebral body height anteriorly. No definite fracture line. Please correlate with point tenderness if there is clinical concern. The remaining vertebral bodies are normal in height without evidence of acute fracture. The intervertebral discs appear normal. No central canal stenosis is seen. The facets appear normal. No neural foraminal stenosis is seen. There is subsegmental atelectasis and the adjacent small areas of consolidation noted in the dependent portions of the lung bases. Lumbar spine: The alignment is normal. Vertebral bodies are normal in height without evidence of acute fracture. The intervertebral discs appear normal. No central canal stenosis is seen. The facets appear normal. No neural foraminal stenosis is seen. No soft tissue abnormality is identified. Brain injury guidelines: Skull fracture: No Subdural hematoma: No subdural hematoma. Epidural hematoma: No epidural hematoma. Intraparenchymal hemorrhage: No intraparenchymal hemorrhage. Subarachnoid hemorrhage: No subarachnoid hemorrhage. Intraventricular hemorrhage: No. Midline shift: No Procedure Note Allegra Ness MD - 07/30/2025 PROCEDURE: CT HEAD WO CONTRAST, CT LUMBAR SPINE WO CONTRAST, CTTHORACIC SPINE WO CONTRAST, CT CERVICAL SPINE WO CONTRAST, DATE/TIME OF EXAM: 07/30/2025 7:45 PM, LOCATION [facility] INDICATION: T14.90XA: Trauma EXAMINATION: 1.Computed tomography (CT) of the head without contrast 2.CT of the cervical spine without contrast 3.CT of the thoracic spine without contrast 4.CT of the lumbar spine without contrast ADDITIONAL CLINICAL INFORMATION: Ordering Provider Reason For Exam: Trauma. Technologist Note: None. Additional: None. TECHNIQUE: CT of the head and cervical spine was performed withoutcontrast according to standard protocol. Reformatted axial, sagittal, and coronal images of the thoracic and lumbar spine were obtained by thetechnologist from a concurrently performed body CT and sent to the workstation for review. CT dose reduction technique was used, including AutomatedExposure Control. COMPARISON: No prior study is available for comparison at the time ofthis dictation. FINDINGS: Head: No acute intra- or extra-axial fluid collections are identified. The ventricles are of normal size, shape, and morphology. The basilarcisterns are patent. No mass effect or midline shift is seen. The gomez-whitematter differentiation is normal. No acute calvarial fracture is identified..The orbits appear normal. The paranasal sinuses are clear..The mastoid air cells are clear. No soft tissue abnormality is identified. Cervical spine: Motion and quantum mottle artifacts are limiting factorsin the evaluation of the lower cervical and upper thoracic spine. There is gentle cervical kyphosis. Trace anterolisthesis of C4 on C5. Vertebral bodies are normal in height without evidence of acutefracture. The craniocervical junction is normal. There is mild degenerative disc disease. Up to moderate or moderate to severe central canal stenosis at C5-C6. Evaluation is however significantly limited due to motion and quantum mottle artifacts. There are varying degrees of mild facet osteoarthritis. There are varying degrees of mild uncovertebral joint osteoarthritis. No high-grade neural foraminal stenosis is seen. No soft tissue abnormality is identified. Thoracic spine: The alignment is normal. Bones are osteopenic. Anterior wedgingdeformity of the T6 vertebral body with loss of 30% of vertebral body height anteriorly. No definite fracture line. Please correlate with point tenderness if there is clinical concern. The remaining vertebral bodiesare normal in height without evidence of acute fracture. The intervertebral discs appear normal. No central canal stenosis is seen. The facetsappear normal. No neural foraminal stenosis is seen. There is subsegmental atelectasis and the adjacent small areas of consolidation noted in the dependent portions of the lung bases. Lumbar spine: The alignment is normal. Vertebral bodies are normal in height without evidence of acute fracture. The intervertebral discs appear normal. No central canal stenosis is seen. The facets appear normal. No neural foraminal stenosis is seen. No soft tissue abnormality is identified. Brain injury guidelines: Skull fracture: No Subdural hematoma: No subdural hematoma. Epidural hematoma: No epidural hematoma. Intraparenchymal hemorrhage: No intraparenchymal hemorrhage. Subarachnoid hemorrhage: No subarachnoid hemorrhage. Intraventricular hemorrhage: No. Midline shift: No IMPRESSION: 1.No acute intracranial hemorrhage, midline shift, or significant mass effect. 2.No evidence of acute fracture in the cervical, thoracic, or lumbarspine. 3.Degenerative changes as above including severe central canal stenosisat C5-C6. These findings were discussed in detail with the patient's careprovider, Dr. Bob by Dr. Rodriguez via telephone at 7:57 PM on 07/30/2025 with readback comprehension and verification. > Dictated by Arie Rodriguez MD, (vice president tax) 07/30/2025 7:48 PM. > Dictated by Cloth Packer I, Allegra Ness MD have personally reviewed and interpretedthis examination/study. > Interpreting Provider: Allegra Ness MD on 07/30/2025 9:23 PM us Kike Busch MD CT ORDERABLES Final Result * XR CHEST 1VW PORTABLE (07/30/2025 7:29 PM CDT) Anatomical Region Laterality Modality Chest Digital Radiogra phy 07/30/2025 7:44 PM CDT Impressions 07/30/2025 7:45 PM CDT IMPRESSION: Minimal left lower lobe atelectasis, otherwise no acute findings. > Interpreting Provider: Adam Cardenas MD on 07/30/2025 7:45 PM Narrative 07/30/2025 7:45 PM CDT PROCEDURE: XR CHEST 1VW PORTABLE DATE/TIME OF EXAM: 07/30/2025 7:29 PM CLINICAL INFORMATION: None relevant/not provided if blank. Indication: T14.90XA: Trauma Additional History: COMPARISON: None. FINDINGS: Lungs are partially expanded. Minimal left retrocardiac opacity suggesting atelectasis, otherwise no acute findings in the lungs. No pleural effusion or pneumothorax seen. Cardiac and mediastinal opacities and outline are normally maintained. No significant bony lesions is seen. Procedure Note Adam Cardenas MD - 07/30/2025 PROCEDURE: XR CHEST 1VW PORTABLE DATE/TIME OF EXAM: 07/30/2025 7:29 PM CLINICAL INFORMATION: None relevant/not provided if blank. Indication: T14.90XA: Trauma Additional History: COMPARISON: None. FINDINGS: Lungs are partially expanded. Minimal left retrocardiac opacity suggesting atelectasis, otherwise no acute findings in the lungs. No pleural effusion or pneumothorax seen. Cardiac and mediastinal opacities and outline are normally maintained. No significant bony lesions is seen. IMPRESSION: Minimal left lower lobe atelectasis, otherwise no acute findings. > Interpreting Provider: Adam Cardenas MD on 57:45 PM Kike Busch MD DIAGNOSTIC IMAGING ORDERABLES Final Result * XR Ankle Right 3Vw or More (07/30/2025 7:29 PM CDT) Anatomical Region Laterality Modality Lower Extremity Digital Radiogra phy 07/30/2025 7:43 PM CDT Narrative 07/30/2025 7:43 PM CDT PROCEDURE: XR ANKLE RIGHT 3VW OR MORE DATE/TIME OF EXAM: 07/30/2025 7:30 PM CLINICAL INFORMATION: None relevant/not provided if blank. Indication: T14.90XA: Trauma Additional History: COMPARISON: None. FINDINGS: No acute fractures or dislocations is seen. The joint spaces are preserved. Bone mineral density is within normal limits. No significant soft tissue swelling or joint effusion is seen. > Interpreting Provider: Adam Cardenas MD on 07/30/2025 7:43 PM Procedure Note Adam Cardenas MD - 07/30/2025 PROCEDURE: XR ANKLE RIGHT 3VW OR MORE DATE/TIME OF EXAM: 07/30/2025 7:30 PM CLINICAL INFORMATION: None relevant/not provided if blank. Indication: T14.90XA: Trauma Additional History: COMPARISON: None. FINDINGS: No acute fractures or dislocations is seen. The joint spaces arepreserved. Bone mineral density is within normal limits. No significant soft tissue swelling or joint effusion is seen. > Interpreting Provider: Adam Cardenas MD on 57:43 PM Trino Mead DO DIAGNOSTIC IMAGING ORDERABLE S Final Result * XR PELVIS 1 OR 2VW (07/30/2025 7:29 PM CDT) Anatomical Region Laterality Modality Pelvis Digital Radiogra phy 07/30/2025 7:41 PM CDT Narrative 07/30/2025 7:41 PM CDT PROCEDURE: XR PELVIS 1 OR 2VW DATE/TIME OF EXAM: 07/30/2025 7:29 PM CLINICAL INFORMATION: None relevant/not provided if blank. Indication: T14.90XA: Trauma Additional History: COMPARISON: None. FINDINGS: No acute fractures or dislocations is seen. The joint spaces are preserved. Bone mineral density is within normal limits. No significant soft tissue swelling or joint effusion is seen. > Interpreting Provider: Adam Cardenas MD on 07/30/2025 7:41 PM Procedure Note Adam Cardenas MD - 07/30/2025 PROCEDURE: XR PELVIS 1 OR 2VW DATE/TIME OF EXAM: 07/30/2025 7:29 PM CLINICAL INFORMATION: None relevant/not provided if blank. Indication: T14.90XA: Trauma Additional History: COMPARISON: None. FINDINGS: No acute fractures or dislocations is seen. The joint spaces arepreserved. Bone mineral density is within normal limits. No significant soft tissue swelling or joint effusion is seen. > Interpreting Provider: Adam Cardenas MD on 57:41 PM Kike Busch MD DIAGNOSTIC IMAGING ORDERABLES Final Result * PREPARE (CROSSMATCH) RBC UNIT(S), 4 Units (07/30/2025 7:08 PM CDT) Unit Description AS1 LR PRBC [facility] Unit ABO A [facility] Unit Rh POS [facility] Product Number R02 [facility] Unit Donor # [id number] [facility] Unit Status released [facility] Product Code [id number] [facility] Blood Type Barcode 6200 [facility] Expiration Date S BLOOD BANK LAB Unit Description AS1 LR PRBC [facility] Unit ABO A [facility] Unit Rh POS [facility] Product Number R02 [facility] Unit Donor # [id number] [facility] Unit Status released [facility] Product Code [id number] [facility] Blood Type Barcode 6200 [facility] Expiration Date S BLOOD BANK LAB Unit Description AS1 LR PRBC [facility] Unit ABO A [facility] Unit Rh POS [facility] Product Number R02 [facility] Unit Donor # [id number] [facility] Unit Status released [facility] Product Code [id number] [facility] Blood Type Barcode 6200 [facility] Expiration Date S BLOOD BANK LAB Unit Description AS1 LR PRBC [facility] Unit ABO A [facility] Unit Rh POS [facility] Product Number R02 [facility] Unit Donor # [id number] [facility] Unit Status released [facility] Product Code [id number] [facility] Blood Type Barcode 6200 [facility] Expiration Date S BLOOD BANK LAB Blood Bank BLOOD SPECIMEN / Unknown 07/30/2025 7:08 PM CDT 07/30/2025 7:20 PM CDT Trino Mead DO LAB - BLOOD BANK ORDERABLES Final Result Performing Organization Address City/[facility]/ZIP Co de Phone Number [facility] [address] [place] [address], [facility] [phone] * TYPE + SCREEN PANEL (07/30/2025 7:08 PM CDT) Antibody Screen NEG 7:58 PM CDT [facility] ABO Rh A POS 07/30/2025 7:58 PM CDT [facility] Blood Bank BLOOD SPECIMEN / Unknown Venipuncture / Unknown 07/30/2025 7:08 PM CDT 07/30/2025 7:20 PM CDT Kike Busch MD LAB - BLOOD BANK ORDERABLES Fi nal Result [facility] [address] [place] [address], [facility] [phone] * PTT (07/30/2025 7:08 PM CDT) [facility] APTT 24.9 23.0 - 38.4 Seconds 07/30/2025 7:41 PM CDT [facility] Comment:Suggested therapeuti c range for full dose I.V. unfractionated heparin therapy for venous thromboembolism is 71 to 109 seconds. Blood BLOOD SPECIMEN / Unknown Venipuncture / Unknown 07/30/2025 7:08 PM CDT 07/30/2025 7:14 PM CDT Kike Busch MD LAB - COAGULATION ORDERABLES F inal Result Performing Organization Address [facility] Co de Phone Number [address] [address], [facility] [phone] * PT-INR (07/30/2025 7:08 PM CDT) [facility] PT 14.5 12.1 - 14.8 Seconds 07/30/2025 7:41 PM CDT [facility] INR 1.2 See Comment 07/30/2025 7:41 PM CDT [facility] Comment:The suggested therap eutic range for standard coumadin (warfarin) therapy is an INR of 2.0-3.0. For high-risk patients (Mechanical Mitral Valve Prosthesis, etc.), the suggested prophylactic therapeutic range is an INR of 2.5-3.5. Blood BLOOD SPECIMEN / Unknown Venipuncture / Unknown 07/30/2025 7:08 PM CDT 07/30/2025 7:14 PM CDT Kike Busch MD LAB - COAGULATION ORDERABLES F inal Result Performing Organization Address City/[facility]/ZIP Co de Phone Number [address] [address], [place] [phone] * (ABNORMAL) DIFFERENTIAL MANUAL (07/30/2025 7:08 PM CDT) Pathologist [facility] [place] Neutrophil % 90(H) 41 - 74 % 07/30/2025 7:53 PM CDT [facility] Lymphocyte % 6(L) 17 - 47 % 07/30/2025 7:53 PM [facility] Monocyte % 4 3 - 11 % 07/30/2025 7:53 PM [facility] Neutrophil Absolute 23.40(H) 1.60 - 7.50 x10E9/L 07/30/2025 7:53 PM [facility] Lymphocyte Absolute 1.56 1.00 - 4.40 x10E9/L 07/30/2025 7:53 PM [facility] Monocyte Absolute 1.04(H) 0.15 - 1.00 x10E9/L 07/30/2025 7:53 PM [facility] RBC Morphology NORMAL 07/30/2025 7:53 PM [facility] Blood BLOOD SPECIMEN / Unknown Venipuncture / Unknown 07/30/2025 7:08 PM CDT 07/30/2025 7:16 PM CDT us Kike Busch MD LAB - HEMATOLOGY ORDERABLES Fi nal Result [facility] [address] [place] [address], [facility] [phone] * HCG BETA BLOOD QUANTITATIVE (07/30/2025 7:08 PM CDT) Beta-hCG Total Quantitative <3 mIU/mL 07/30/2025 10:01 PM T [facility] Comment: HCG Numeric Result Interpretation: Non- Females: < 5 mIU/mL Post-Menopausal Females: < 7 mIU/mL This assay is cleared for use in the early detection of only. It is not approved for any other uses such as tumor marker screening, tumor marker monitoring, etc. and should not be used for any other purposes. Blood BLOOD SPECIMEN / Unknown Venipuncture / Unknown 07/30/2025 7:08 PM CDT 07/30/2025 7:16 PM CDT us Trino R Bisesi DO LAB - CHEMISTRY ORDERABLES F inal Result Performing Organization Address [facility] Co de Phone Number [address] [address], [facility] [phone] * (ABNORMAL) ALCOHOL ETHYL BLOOD (07/30/2025 7:08 PM CDT) Ethanol (mg/dL) 204(H) <10 mg/dL 7:44 PM CDT [facility] Ethanol Calculated (g/dL) 0.204(H) <=0.010 g/dL 07/30/2025 7:44 PM CDT [facility] Blood BLOOD SPECIMEN / Unknown Venipuncture / Unknown 07/30/2025 7:08 PM CDT 07/30/2025 7:16 PM CDT Narrative [facility] - 07/30/2025 7:44 PM CDT Ethanol Interp <10: None Detected. Depression of DIRECTOR OF TECHNOLOGY: >100 mg/dl Potentially Critical: >250 mg/dl Potentially Fatal >400 mg/dl Ethanol in the patient's blood will contribute to the osmolar gap. Ethanol's contribution to the osmolar gap can be estimated by dividing the concentration of ethanol in mg/dL by 4.6. This test is for clinical use only and does not equal a IZZY for legal purposes. us Kike Busch MD LAB - CHEMISTRY ORDERABLES Fin al Result Performing Organization Address [facility] Co de Phone Number [address] [address], [facility] [phone] from Last 3 Months Insurance MEDICAID [employer] * Guarantor: Malena Herrear Account Type Relation to Patient Date of Phone Billing Address Third [employer] Party Liability Self 1990 [id number] [place] [address] [employer] Advance Directives * Full Code (Latest Code Status on File) Date Activated Date Inactivated Comments 07/31/2025 10:55 PM 08/07/2025 9:57 PM * Full Code Date Activated Date Inactivated Comments 07/30/2025 9:54 PM 07/31/2025 10:55 PM Care Teams Ticket Maker Relationship Specialty Start Date End Date Provider, No Pcp PCP - General 07/30/25
[2025-08-17 13:18] LABS: Hematocrit 36.1 % (36-47); Hemoglobin 12.00 g/dL (11.27-16.99); Mean Corpuscular HGB Conc 33.2 g/dL (30-55); Mean Corpuscular Hemoglobin 32.0 pg (27-33); Mean Corpuscular Volume 96.3 fl (85-98); Nucleated Red Blood Cells % 0 %; Platelet Count 592 10^3/cmm (157-399); Red Blood Count 3.75 10^6/uL (3.85-5.65); White Blood Count 8.07 10^3/uL (3.29-11.43)
[2025-08-17 13:35] LABS: Alanine Aminotransferase 23 U/L (0-33); Albumin Level 3.9 g/dL (3.5-5.2); Alkaline Phosphatase 133 U/L (35-105); Anion Gap 14.6 (5-19); Aspartate Amino Transferase 19 U/L (0-32); Blood Urea Nitrogen 12 mg/dL (6-20); Calcium 8.9 mg/dL (8.5-10.5); Carbon Dioxide 24 mmol/L (22-29); Chloride 106 mmol/L (98-107); Creatinine Clr Calc Pharmacy 133.3238; Globulin 3.2 g/dL (1.3-4.6); Glucose 108 mg/dL (65-115); Lipase 28 U/L (13-60); Osmolality Calculated 292 mOsm/kg (285-295); Potassium 3.6 mmol/L (3.5-5.1); Sodium 141 mmol/L (136-145); Total Protein 7.1 g/dL (6.6-8.7)
[2025-08-17 13:41] LABS: HCG, Serum Qual Negative (Negative)
[2025-08-17 13:45] VITALS: BP 115/65; PULSE 75; O2SAT 99
[2025-08-17 13:45] LABS: Glucose Urine UA Negative (Normal); Nitrate Urine Negative (Negative)
--- NOTE | 2025-08-17 13:47 | CT_ITS ---
WS: [id number] CT ABDOMEN AND PELVIS WITH CONTRAST HISTORY: Abdominal pain, history of abdominal surgery on 08/01/2025 with partial bowel resection. TECHNIQUE: Imaging performed of the abdomen and pelvis with IV contrast. Single phase imaging of the abdomen. Coronal and sagittal reformats are submitted. All CT scans at [facility] use at least one of these dose optimization techniques: automated exposure control; mA and/or kV adjustment per patient size (includes targeted exams where dose is matched to clinical indication); or iterative reconstruction. IV CONTRAST: Omnipaque 350; 100 mL IV. Oral contrast: No DLP: 819.53 mGy.cm COMPARISON: None available. Lower thorax: Lung bases are clear. Heart is normal size. No hiatal hernia. Liver/biliary system: Normal size liver. 3 mm hepatic cyst RIGHT lobe. Normal portal vein. Gallbladder: Gallbladder is collapsed. No adjacent inflammation. Pancreas: Normal size pancreas and pancreatic duct. No adjacent inflammation. Spleen: Normal size spleen. No mass or infarct. Adrenal glands: Normal. Right kidney: Normal. Left kidney: Normal. Aorta: Normal. Lymphadenopathy: None. Free fluid: None. GI tract: Status post recent partial bowel resection. Anastomotic sutures are noted in the RIGHT lower quadrant. Anastomotic site of the colon and small bowel appears to be intact. There are some very mild inflammation and wall thickening but there is no obvious obstruction. No adjacent fluid collection or evidence for leaking at the anastomosis. Mild soft tissue stranding in the adjacent soft tissues appears appropriate. No abscess. Abdominal wall: Lung midline surgical incision site. There is a small central abdominal wall fluid collection measuring 1.2 x 1.0 x 1.9 cm which is above the umbilicus. There is no air within this collection. Mild soft tissue thickening along the umbilicus. Omental fat stranding deep to the surgical incision is fat necrosis. No abscess. There is a mildly complex fluid collection along the RIGHT lateral abdominal wall centered at the level of the iliac crest. This collection measures 7.5 x 4.8 x 11.6 cm and is likely a soft tissue hematoma. There is no abscess or wall enhancement. There is additional soft tissue stranding along the RIGHT lateral abdominal wall. Pelvis: Urinary bladder is well distended. No free fluid in the pelvis. Uterus is midline and normal. Bones: Unremarkable. CT/CT abdomen pelvis w con* [id number] IMPRESSION: 1. Status post partial bowel resection. Surgical anastomotic site in the RIGHT lower quadrant appears intact. There is no evidence for anastomotic leaking. N o abscess. 2. Very some minimal amount of increased fluid at the anastomotic site but no obvious ileus or obstruction at this time. 3. Large complex fluid collection along the RIGHT lateral abdominal wall at th e level of the iliac crest measures 7.5 x 4.8 x 11.6 cm is most likely hematoma . No air or wall enhancement to suggest abscesses at this time. 4. Long ventral abdominal wall incision site appears appropriate for the recen t surgery. There is a small well-circumscribed fluid collection measuring 1.2 x 1.0 x 1.9 cm which is probably is postoperative seroma. There is no air within this collection. 5. No free air or ascites. Notified Mack Echevarria DO at 08/17/2025 2:35 PM.
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
[2025-08-17 14:04] LABS: Add Urine Microscopic? YES; Specific Gravity, Urine 1.037 (1.005-1.030)
[2025-08-17] MEDS: iohexol 350 mg/mL 500 mL Btl (per mL) IV (14:07)
== END 2025-08-17 14:57 | disposition home or self-care (01) ==
PROVIDERS: Emergency Medicine; Emergency Provider Family Medicine
DX: R10.9 Unspecified abdominal pain (principal); Z98.890 Other specified postprocedural states; G89.18 Other acute postprocedural pain
CPT/HCPCS: 36415; 74177; 80053; 81001; 83690; 84703; 85025; 87086; 99285

== ENCOUNTER 2025-08-23 11:43 | Emergency (ER) | payer BC, MEDICAID, SELFPAY ==
[2025-08-23 11:47] VITALS: BP 114/77; PULSE 82; TEMP 36.9; O2SAT 96
--- OUTSIDE RECORDS SUMMARY | 2025-08-23 11:52 | XMS_ITS | Clinical Summary ---
Author Organization [facility] [employer] Address [address] [place] [address] Care Team Providers Care Food Storeroom Clerk Name Role Phone Provider, No Pcp Primary Care Provider Unavailab le Source Comments [facility] [employer],non-owned Affiliates and Associated Physician Practices is amultiple site organization consisting of ambulatory clinics and hospital sitesin [place], [place], [place] and [place]. This disclosure is being madepursuant to the Care Everywhere program and may not contain all information available regarding this patient. Last updated 18.[facility] [employer] Allergies Active Allergy Reactions Criticality Noted Date [...] Travel 07/31/2025 7:57 PM CDT Anesthesia Event [facility] [address] [place] [address] Nate Zhong MD 07/31/2025 7:55 PM CDT Anesthesia Event [facility] [address] [place] [address] Alexandre Gonsalez MD Hunsaker, Madelyn, MD 07/31/2025 6:20 PM CDT - 07/31/2025 9:38 PM CDT Surgery [facility] [address] [place] [address] Dominic Bartlett MD LAPAROSCOPY DIAGNOSTIC, ILEOCECECTOMY WITH ANASTAMOSIS, PARTIAL RESECTION OF OMENTUM LEVEL 5 @ 1134 07/30/2025 7:00 PM CDT - 08/07/2025 8:47 PM CDT Hospital Encounter [facility] [address] [place] [address] Trino Mead DO Freeman, Carl A, MD [...] and heating? Not hard at all 08/02/2025 [facility] [place] [facility] Occupat ional Health - Occupational Stress [...] any time in the past 12 m [facility], were you homeless or living in a usp (including now)? No 08/02/2025 Comments No Sex [...] Support [facility] - General Surgery [address] [place] [address], [place] [id number] Health Maintenance Due Date Last Done Comments [...] TUBE NOTE Routine 07/31/2025 8:12 PM CDT MD LAP,DIAGNOSTIC ABDOMEN 07/31/2025 7:31 PM CDT Mesenteric [...] BLOOD STAT 07/30/2025 7 :08 PM CDT MD LAP,DIAGNOSTIC ABDOMEN Mesenteric bleeding from Last 3 [...] Cardenas MD on 58:59 PM Rita Augustin GROUT MACHINE OPERATOR-TOP FORMER DIAGNOSTIC IMAGING ORDER INDIRA Final Result * (ABNORMAL) CBC W/O DIFFERENTIAL (08/04/2025 12:09 AM CDT) Only the most recent of4 resultswithin the time period is included. WBC 5.5 4.0 - 10.7 x10E9/L 08/04/2025 12:46 AM [facility] RBC Count 3.05(L) 3.90 - 5.20 x10E12/L 08/04/2025 12:46 AM [facility] Hemoglobin 10.2(L) 11.9 - 15.8 g/dL 08/04/2025 12:46 AM [facility] Hematocrit 30.0(L) 34.8 - 46.1 % 08/04/2025 12:46 AM [facility] MCV 98.4(H) 80.0 - 98.0 fL 08/04/2025 12:46 AM [facility] MCH 33.4 26.7 - 33.6 pg 08/04/2025 12:46 AM [facility] MCHC 34.0 31.7 - 36.3 g/dL 08/04/2025 12:46 AM [facility] RDW-CV 14.1 11.3 - 14.8 % 08/04/2025 12:46 AM [facility] Platelet Count 236 150 - 420 x10E9/L 08/04/2025 12:46 AM [facility] MPV 10.1 7.8 - 11.4 fL 08/04/2025 12:46 AM [facility] Blood BLOOD SPECIMEN / Unknown Lab Venipuncture / Unknown 08/04/2025 12:09 AM CDT 08/04/2025 12:34 AM T us Trino Mead DO LAB - HEMATOLOGY ORDERABLES Final Result [facility] [address] [place] [address], [facility] [phone] * (ABNORMAL) BASIC METABOLIC PANEL (CALCIUM TOTAL) (08/04/2025 12:09 AM CDT) Only the most recent of6 resultswithin the time period is included. BUN 7 7 - 26 mg/dL 08/04/2025 1:05 AM [facility] Creatinine 0.68 0.56 - 0.96 mg/dL 08/04/2025 1:05 AM [facility] Sodium 135(L) 136 - 145 mmol/L 08/04/2025 1:05 AM [facility] Potassium 3.7 3.5 - 4.5 mmol/L 08/04/2025 1:05 AM [facility] Chloride 102 98 - 107 mmol/L 08/04/2025 1:05 AM [facility] CO2 28 22 - 29 mmol/L 08/04/2025 1:05 AM [facility] Glucose 91 70 - 99 mg/dL 08/04/2025 1:05 AM [facility] Calcium 8.3(L) 8.4 - 10.2 mg/dL 08/04/2025 1:05 AM [facility] Anion Gap 5(L) 6 - 16 08/04/2025 1:05 AM [facility] BUN/Creatinine Ratio 10 7 - 23 08/04/2025 1:05 AM [facility] Osmolality Calculated 278 275 - 295 mOsm/kg 08/04/2025 1:05 AM [facility] eGFR by CKD-EPI >90 >=90 mL/min/1.7 3 m2 08/04/2025 1:05 AM [facility] Comment:Estimated Glomerular Filtration Rate (eGFR) calculated using the CKD-EPI Creatinine Equation (2020), per the National Kidney Foundation and [place] [employer] Neph[employer] recommendations. Blood BLOOD SPECIMEN / Unknown Lab Venipuncture / Unknown 08/04/2025 12:09 AM CDT 08/04/2025 12:34 AM [facility] us Trino Mead DO LAB - CHEMISTRY ORDERABLES F inal Result [facility] [address] [place] [address], [facility] [phone] * PHOSPHORUS BLOOD (08/04/2025 12:09 AM CDT) Only the most recent of5 resultswithin the time period is included. Phosphorus 3.7 2.9 - 5.1 mg/dL 08/04/2025 1:29 AM CDT [facility] Blood BLOOD SPECIMEN / Unknown Lab Venipuncture / Unknown 08/04/2025 12:09 AM CDT 08/04/2025 12:34 AM CDT [facility] [employer] LAB - CHEMISTRY ORDERABLES F inal Result [address] [address], [facility] [phone] * MAGNESIUM BLOOD (08/04/2025 12:09 AM CDT) Only the most recent of5 resultswithin the time period is included. Pathologist [facility] Magnesium 1.6 1.6 - 2.6 mg/dL 08/04/2025 1:05 AM CDT [facility] Blood BLOOD SPECIMEN / Unknown Lab Venipuncture / Unknown 08/04/2025 12:09 AM CDT 08/04/2025 12:34 AM CDT [facility] [employer] LAB - CHEMISTRY ORDERABLES F inal Result Performing Organization Address City/[facility]/ZIP Co de Phone Number [address] [address], [facility] [phone] * (ABNORMAL) CBC W AUTO DIFFERENTIAL (08/03/2025 11:51 PM CDT) Only the most recent of3 resultswithin the time period is included. WBC 5.6 4.0 - 10.7 x10E9/L 08/04/2025 12:53 AM CDT [facility] RBC Count 3.10(L) 3.90 - 5.20 x10E12/L 08/04/2025 12:53 AM CDT [facility] Hemoglobin 10.1(L) 11.9 - 15.8 g/dL 08/04/2025 12:53 AM [facility] Hematocrit 30.4(L) 34.8 - 46.1 % 08/04/2025 12:53 AM [facility] MCV 98.1(H) 80.0 - 98.0 fL 08/04/2025 12:53 AM [facility] MCH 32.6 26.7 - 33.6 pg 08/04/2025 12:53 AM [facility] MCHC 33.2 31.7 - 36.3 g/dL 08/04/2025 12:53 AM [facility] RDW-CV 14.1 11.3 - 14.8 % 08/04/2025 12:53 AM [facility] Platelet Count 241 150 - 420 x10E9/L 08/04/2025 12:53 AM [facility] MPV 9.9 7.8 - 11.4 fL 08/04/2025 12:53 AM [facility] Neutrophil % 66.3 41.0 - 74.0 % 08/04/2025 12:53 AM [facility] Lymphocyte % 21.6 17.0 - 47.0 % 08/04/2025 12:53 AM [facility] Monocyte % 9.5 3.0 - 11.0 % 08/04/2025 12:53 AM [facility] Eosinophil % 2.0 0.0 - 7.0 % 08/04/2025 12:53 AM [facility] Basophil % 0.2 0.0 - 1.6 % 08/04/2025 12:53 AM [facility] Immature Granulocytes % 0.4 0.0 - 1.0 % 08/04/2025 12:53 AM [facility] Neutrophil Absolute 3.68 1.60 - 7.50 x10E9/L 08/04/2025 12:53 AM [facility] Lymphocyte Absolute 1.20 1.00 - 4.40 x10E9/L 08/04/2025 12:53 AM [facility] Monocyte Absolute 0.53 0.15 - 1.00 x10E9/L 08/04/2025 12:53 AM CDT [facility] Eosinophil Absolute 0.11 0.00 - 0.60 x10E9/L 08/04/2025 12:53 AM CDT [facility] Basophil Absolute 0.01 0.00 - 0.13 x10E9/L 08/04/2025 12:53 AM CDT [facility] Blood BLOOD SPECIMEN / Unknown Lab Venipuncture / Unknown 08/03/2025 11:51 PM CDT 08/04/2025 12:15 AM CDT us Kike Busch MD LAB - HEMATOLOGY ORDERABLES Fi nal Result [facility] [address] [place] [address], [facility] [phone] * XR Knee Right 3Vw (08/01/2025 12:36 PM CDT) Anatomical Region Laterality Modality Lower Extremity Digital Radiogra phy 08/01/2025 3:32 PM CDT Impressions 08/01/2025 6:10 PM CDT IMPRESSION: No acute fracture or dislocation of knee identified. > Dictated by [facility] (residential life director). > Dictated by Animal Control Supervisor I, Bri Nuñez MD have personally reviewed and interpreted this examination/study. > Interpreting Provider: Bri Nuñez MD on 08/01/2025 6:10 PM Narrative 08/01/2025 6:10 PM CDT EXAMINATION: XR KNEE RIGHT 3VW DATE/TIME OF EXAM: 08/01/2025 12:36 PM, LOCATION [facility] HISTORY: T14.90XA: Trauma right knee pain/ecchymosis COMPARISON: No prior. FINDINGS: No joint effusion is seen. Bone density and texture are normal. No soft tissue swelling is present. Procedure Note Bri Nuñez MD - 08/01/2025 EXAMINATION: XR KNEE RIGHT 3VW DATE/TIME OF EXAM: 08/01/2025 12:36 PM, [facility] HISTORY: T14.90XA: Trauma right knee pain/ecchymosis COMPARISON: No prior. FINDINGS: No joint effusion is seen. Bone density and texture are normal. No soft tissue swelling is present. IMPRESSION: No acute fracture or dislocation of knee identified. > Dictated [facility] (residential life director). > Dictated by Animal Control Supervisor I, Bri Nuñez MD have personally reviewed and interpreted this examination/study. > Interpreting Provider: Bri Nuñez MD on 08/01/2025 6:10 PM us Alyssa Cristy Wmnidia GROUT MACHINE OPERATOR-VESSEL WELDER DIAGNOSTIC IMAGING ORDERA BLES Final Result * PATHOLOGY TISSUE (07/31/2025 9:26 PM CDT) Case Report Surgical Pathology Report Case: [id number] Authorizing Provider: Dominic Bartlett MD Collected: 07/31/2025 09:26 PM Ordering Location: [facility] Received: 08/01/2025 04:49 AM Pathologist: [...] cecal, and appendix injury 08/02/2025 10:23 AM [facility] Gross Description The requisition and [...] perforation. There are no additional gross lesions. Oncology Consultant sections are submitted as follows: A1-proximal terminal [...] peripheral hemorrhage. There are no gross lesions. Oncology Consultant sections are submitted in cassette B1-B2 IKD. 08/02/2025 10:23 AM [facility] Pathologist Location at [facility] 08/02/2025 10:23 AM [facility] Disclaimer The performance characteristics of all immunohistochemical and indirect immunofluorescence stains (if any) cited in this report were determined by the Histopathology [facility] of [facility]. Some of these tests were developed [...] attending (teaching) pathologist. 08/02/2025 10:23 AM CDT [facility] Embedded Images 08/02/2025 10:23 AM CDT [facility] Resection without Tumor ENTIRE ILEUM / Unknown 07/31/2025 9:26 PM CDT 08/01/2025 4:49 AM CDT Resection without Tumor ENTIRE OMENTUM / Unknown 07/31/2025 9:27 PM CDT 08/01/2025 4:49 AM CDT us Dominic Bartlett MD LAB - PATHOLOGY/CYTOLOGY ORD ERABLES Final Result [facility] [address] [phone] * ETT LINE PERFORMABLE (07/31/2025 8:12 PM CDT) Narrative eNal Merino MD - 07/31/2025 8:12 PM CDT Neal Merino MD 07/31/2025 8:12 PM Endotracheal Tube Placement: Patient Location: OR. Intubation Event Date/Time: 07/31/2025 8:02 PM Procedure: intubation ([id number]) Procedure Section: Sedation: under general anesthesia. Indications [...] 1.8 <=2.0 mmol/L 07/31/2025 11:56 AM CDT [facility] Blood BLOOD SPECIMEN / Unknown Lab Venipuncture / Unknown 07/31/2025 10:33 AM CDT 07/31/2025 11:28 AM CDT us Trino Mead DO LAB - CHEMISTRY ORDERABLES F inal Result [address] [address], [facility] [phone] * CT Abdomen Pelvis W Contrast (07/31/2025 [...] ischemia. > Dictated by Randal Rivas MD (residential life director). > Dictated by Animal Control Supervisor IStephanie MD have personally reviewed and interpreted this examination/study. > Interpreting Provider: Stephanie Garcia MD on 07/31/2025 11:28 AM Narrative 07/31/2025 11:28 AM CDT PROCEDURE: CT ABDOMEN PELVIS W CONTRAST, DATE/TIME OF EXAM: 07/31/2025 4:27 AM, LOCATION [facility] INDICATION: T14.90XA: Trauma ADDITIONAL CLINICAL INFORMATION: Ordering [...] DATE/TIME OF EXAM: 07/31/2025 4:27 AM, LOCATION [facility] INDICATION: T14.90XA: Trauma ADDITIONAL CLINICAL INFORMATION: Ordering [...] ischemia. > Dictated by Randal Rivas MD (residential life director). > Dictated by Animal Control Supervisor Stephanie Treadwell MD have personally reviewed and interpreted this examination/study. > Interpreting Provider: Stephanie Garcia MD on 07/31/2025 11:28 AM Kike Busch MD CT ORDERABLES Final Result * (ABNORMAL) URINALYSIS REFLEX TO MICROSCOPIC NO CULTURE (07/31/2025 4:02 AM [facility]) Color UA Yellow Yellow, Straw 07/31/2025 4:32 AM [facility] Clarity UA Clear Clear 07/31/2025 4:32 AM [facility] Glucose UA Normal Normal 07/31/2025 4:32 AM [facility] Bilirubin UA Negative Negative 07/31/2025 4:32 AM [facility] Ketone UA Negative Negative 07/31/2025 4:32 AM [facility] Specific [place] UA 1.037(H) 1.005 - 1.030 07/31/2025 4:32 AM [facility] Blood UA 1+(A) Negative 07/31/2025 4:32 AM [facility] pH UA 6.0 5.0 - 8.0 07/31/2025 4:32 AM [facility] Protein UA Negative Negative 07/31/2025 4:32 AM [facility] Urobilinogen UA Normal Normal mg/dL 025 4:32 AM [facility] Nitrite UA Negative Negative 07/31/2025 4:32 AM [facility] Leukocyte Esterase UA Negative Negative 07/31/2025 4:32 AM [facility] RBC UA 21-50(A) 0 - 5 # /hpf 07/31/2025 4:32 AM [facility] WBC UA 0-5 0 - 5 # /hpf 07/31/2025 4:32 AM [facility] Bacteria UA None Seen None Seen 07/31/2025 4:32 AM [facility] Squamous Epithelial Cells 6-10 0 - 5 /hpf 07/31/2025 4:32 AM [facility] Mucus UA 1+ /LPF 07/31/2025 4:32 AM [facility] Hyaline Casts 0-2 0 - 2 /LPF 07/31/2025 4:32 AM [facility] Urine URINE SPECIMEN OBTAINED BY CLEAN CATCH PROCEDURE / Unknown Collection / Unknown 07/31/2025 4:02 AM CDT 07/31/2025 4:06 AM CDT Narrative [facility] - 07/31/2025 4:32 AM CDT Trino Mead DO LAB - URINALYSIS ORDERABLES Final Result [facility] [address] [place] [address], [facility] [phone] * (ABNORMAL) URINE DRUG SCREEN IMMUNOASSAY (07/31/2025 4:02 AM CDT) [facility] Amphetamines Screen Urine Negative Negative : < 1000 ng/mL 07/31/2025 4:34 AM [facility] Barbiturates Screen Urine Negative Negative : < 200 ng/mL 07/31/2025 4:34 AM [facility] Benzodiazepine Screen Urine Negative Negative : < 200 ng/mL 07/31/2025 4:34 AM [facility] Opiates Urine Negative Negative : < 300 ng/mL 07/31/2025 4:34 AM [facility] Cocaine Metabolites Urine Negative Negative : < 300 ng/mL 07/31/2025 4:34 AM [facility] Phencyclidine Screen Urine Negative Negative : < 25 ng/ml 07/31/2025 4:34 AM [facility] Cannabinoids Screen Urine Negative Negative : <50 ng/mL 07/31/2025 4:34 AM [facility] Methadone Screen Urine Negative Negative : < 300 ng/mL 07/31/2025 4:34 AM [facility] Fentanyl Screen Urine Positive(A) Negative : <1.5 ng/mL 07/31/2025 4:34 AM [facility] Comment:Positive urine fenta nyl screening results should be confirmed by another generally accepted non-immunological method such as gas chromatography or mass spectrometry. Urine URINE / Unknown Collection / Unknown 07/31/2025 4:02 AM CDT 07/31/2025 4:07 AM CDT Narrative [facility] - 07/31/2025 4:34 AM CDT The Urine Toxicology Screening Panel does not screen for Propoxyphene, Meprobamate, Carisoprodol, Trazodone, wynp-mpk-tqugerl medications and/or volatiles (Acetone, Isopropanol, Methanol or Ethylene Glycol). Ethanol, Salicylate, Acetaminophen, Tricyclic Antidepressants and several therapeutic drugs may be individually assayed in serum or plasma specimen. Toxicology testing by the [facility] is an aid to medical diagnosis and treatment of patients. No documented chain of custody was maintained. Results are intended to be used for clinical purposes only. Kike Busch MD LAB - URINE CHEMISTRY ORDERABL ES Final Result Performing Organization Address City/[facility]/ZIP Co de Phone Number [facility] [address] [place] [address], [facility] [phone] * BLOOD TYPE VERIFICATION (07/31/2025 12:18 AM CDT) ABO Rh A POS 07/31/2025 1:2 3 AM CDT [facility] Blood Bank BLOOD SPECIMEN / Unknown Lab Venipuncture / Unknown 07/31/2025 12:18 AM CDT 07/31/2025 12:38 AM CDT Trino Mead DO LAB - BLOOD BANK ORDERABLES Final Result Performing Organization Address [facility] de Phone Number [facility] [address] [place] [address], [facility] [phone] * CT CHEST ABDOMEN PELVIS W CONT [...] by Sanjuana Sanders MD > Dictated by Animal Control Supervisor IStephanie MD have personally reviewed and interpreted this examination/study. > Interpreting Provider: Stephanie Garcia MD on 07/30/2025 11:25 PM Narrative 07/30/2025 11:25 PM CDT PROCEDURE: CT CHEST ABDOMEN PELVIS W CONT, DATE/TIME OF EXAM: 07/30/2025 7:45 PM, LOCATION [facility] INDICATION: T14.90XA: Trauma COMPARISON: None. TECHNIQUE: CT [...] CONT, DATE/TIME OF EXAM:07/30/2025 7:45 PM, LOCATION [facility] INDICATION: T14.90XA: Trauma COMPARISON: None. TECHNIQUE: CT [...] by Sanjuana Sanders MD > Dictated by Animal Control Supervisor IStephanie MD have personally reviewed and interpreted [...] verification. > Dictated by Arie Rodriguez MD, (residential life director) 07/30/2025 7:48 PM. > Dictated by Animal Control Supervisor I, Allegra Ness MD have personally reviewed and interpreted this examination/study. > Interpreting Provider: Allegra Ness MD on 07/30/2025 9:23 PM Narrative 07/30/2025 9:23 PM CDT PROCEDURE: CT HEAD WO CONTRAST, CT LUMBAR SPINE WO CONTRAST, CT THORACIC SPINE WO CONTRAST, CT CERVICAL SPINE WO CONTRAST, DATE/TIME OF EXAM: 07/30/2025 7:45 PM, LOCATION [facility] INDICATION: T14.90XA: Trauma EXAMINATION: 1.Computed tomography (CT) [...] DATE/TIME OF EXAM: 07/30/2025 7:45 PM, LOCATION [facility] INDICATION: T14.90XA: Trauma EXAMINATION: 1.Computed tomography (CT) [...] verification. > Dictated by Arie Rodriguez MD, (residential life director) 07/30/2025 7:48 PM. > Dictated by Animal Control Supervisor Allegra Treadwell MD have personally reviewed and [...] verification. > Dictated by Arie Rodriguez MD, (residential life director) 07/30/2025 7:48 PM. > Dictated by Animal Control Supervisor Allegra Treadwell MD have personally reviewed and interpreted this examination/study. > Interpreting Provider: Allegra Ness MD on 07/30/2025 9:23 PM Narrative 07/30/2025 9:23 PM CDT PROCEDURE: CT HEAD WO CONTRAST, CT LUMBAR SPINE WO CONTRAST, CT THORACIC SPINE WO CONTRAST, CT CERVICAL SPINE WO CONTRAST, DATE/TIME OF EXAM: 07/30/2025 7:45 PM, LOCATION [facility] INDICATION: T14.90XA: Trauma EXAMINATION: 1.Computed tomography (CT) [...] DATE/TIME OF EXAM: 07/30/2025 7:45 PM, LOCATION [facility] INDICATION: T14.90XA: Trauma EXAMINATION: 1.Computed tomography (CT) [...] verification. > Dictated by Arie Rodriguez MD, (residential life director) 07/30/2025 7:48 PM. > Dictated by Animal Control Supervisor I, Allegra Ness MD have personally reviewed [...] verification. > Dictated by Arie Rodriguez MD, (residential life director) 07/30/2025 7:48 PM. > Dictated by Animal Control Supervisor I, Allegra Ness MD have personally reviewed and interpreted this examination/study. > Interpreting Provider: Allegra Ness MD on 07/30/2025 9:23 PM Narrative 07/30/2025 9:23 PM CDT PROCEDURE: CT HEAD WO CONTRAST, CT LUMBAR SPINE WO CONTRAST, CT THORACIC SPINE WO CONTRAST, CT CERVICAL SPINE WO CONTRAST, DATE/TIME OF EXAM: 07/30/2025 7:45 PM, LOCATION [facility] INDICATION: T14.90XA: Trauma EXAMINATION: 1.Computed tomography (CT) [...] DATE/TIME OF EXAM: 07/30/2025 7:45 PM, LOCATION [facility] INDICATION: T14.90XA: Trauma EXAMINATION: 1.Computed tomography (CT) [...] verification. > Dictated by Arie Rodriguez MD, (residential life director) 07/30/2025 7:48 PM. > Dictated by Animal Control Supervisor I, Allegra Ness MD have personally reviewed [...] verification. > Dictated by Arie Rodriguez MD, (residential life director) 07/30/2025 7:48 PM. > Dictated by Animal Control Supervisor IAllegra MD have personally reviewed and interpreted this examination/study. > Interpreting Provider: Allegra Ness MD on 07/30/2025 9:23 PM Narrative 07/30/2025 9:23 PM CDT PROCEDURE: CT HEAD WO CONTRAST, CT LUMBAR SPINE WO CONTRAST, CT THORACIC SPINE WO CONTRAST, CT CERVICAL SPINE WO CONTRAST, DATE/TIME OF EXAM: 07/30/2025 7:45 PM, LOCATION [facility] INDICATION: T14.90XA: Trauma EXAMINATION: 1.Computed tomography (CT) [...] DATE/TIME OF EXAM: 07/30/2025 7:45 PM, LOCATION [facility] INDICATION: T14.90XA: Trauma EXAMINATION: 1.Computed tomography (CT) [...] verification. > Dictated by Arie Rodriguez MD, (residential life director) 07/30/2025 7:48 PM. > Dictated by Animal Control Supervisor I, Allegra Ness MD have personally reviewed [...] Modality Lower Extremity Digital Radiogra phy 07/30/2025 7:4 3 PM CDT Narrative 07/30/2025 7:43 PM CDT [...] PM CDT) Unit Description AS1 LR PRBC [facility] Unit ABO A [facility] Unit Rh POS [facility] Product Number R02 [facility] Unit Donor # [id number] [facility] Unit Status released [facility] Product Code [id number] [facility] Blood Type Barcode 6200 [facility] Expiration Date [id number] S [facility] Unit Description AS1 LR PRBC [facility] Unit ABO A [facility] Unit Rh POS [facility] Product [facility] R02 [facility] Unit Donor # [id number] [facility] Unit Status released [facility] Product Code [id number] [facility] Blood Type Barcode 6200 [facility] Expiration Date S BLOOD [facility]ANK LAB Unit Description AS1 LR PRBC [facility] Unit ABO A [facility] Unit Rh POS [facility] Product Number R02 [facility] Unit Donor # [id number] [facility] Unit Status released [facility] Product Code [id number] [facility] Blood Type Barcode 6200 [facility] Expiration Date S [facility]LO[facility] LAB Unit Description AS1 LR PRBC [facility] Unit ABO A [facility] Unit Rh POS [facility] Product Number R02 [facility] Unit Donor # [id number] [facility] Unit Status released [facility] Product Code [id number] [facility] Blood Type [facility] [id number] [facility] BLOOD BANK LAB Expiration Date S BLOOD BANK LAB Blood Bank BLOOD SPECIMEN / Unknown 07/30/2025 7:08 PM CDT 07/30/2025 7:20 PM CDT Trino Mead DO LAB - BLOOD BANK ORDERABLES Final Result Performing Organization Address City/[facility]/ZIP Co de Phone Number [facility] BLOOD BANK LAB [address] [place] [address], [facility] [phone] * TYPE + SCREEN PANEL (07/30/2025 7:08 PM CDT) Antibody Screen NEG 7:58 PM CDT [facility] BLOOD BANK LAB ABO Rh A POS 07/30/2025 7:58 PM CDT [facility] BLOOD BANK LAB Blood Bank BLOOD SPECIMEN / Unknown Venipuncture / Unknown 07/30/2025 7:08 PM CDT 07/30/2025 7:20 PM CDT Kike Busch MD LAB - BLOOD BANK ORDERABLES Fi nal Result [facility] BLOOD BANK LAB [address] [place] [address], [facility] [phone] * PTT (07/30/2025 7:08 PM CDT) Pathologist [facility] APTT 24.9 23.0 - 38.4 Seconds 07/30/2025 7:41 PM CDT [facility] Comment:Suggested therapeuti c range for full dose I.V. unfractionated heparin therapy for venous thromboembolism is 71 to 109 seconds. Blood BLOOD SPECIMEN / Unknown Venipuncture / Unknown 07/30/2025 7:08 PM CDT 07/30/2025 7:14 PM CDT Kike Busch MD LAB - COAGULATION ORDERABLES F inal Result Performing Organization Address [facility] Co de Phone Number [address] [address], [facility] [phone] * PT-INR (07/30/2025 7:08 PM CDT) [facility] PT 14.5 12.1 - 14.8 Seconds 07/30/2025 7:41 PM CDT [facility] INR 1.2 See Comment 07/30/2025 7:41 PM CDT [facility] Comment:The suggested therap eutic range for standard coumadin (warfarin) therapy is an INR of 2.0-3.0. For high-risk patients (Mechanical Mitral Valve Prosthesis, etc.), the suggested prophylactic therapeutic range is an INR of 2.5-3.5. Blood BLOOD SPECIMEN / Unknown Venipuncture / Unknown 07/30/2025 7:08 PM CDT 07/30/2025 7:14 PM CDT Kike Busch MD LAB - COAGULATION ORDERABLES F inal Result Performing Organization Address City/[facility]/ZIP Co de Phone Number [address] [address], [place] [phone] * (ABNORMAL) DIFFERENTIAL MANUAL (07/30/2025 7:08 PM CDT) Pathologist [facility] Neutrophil % 90(H) 41 - 74 % 07/30/2025 7:53 PM CDT [facility] Lymphocyte % 6(L) 17 - 47 % 07/30/2025 7:53 PM T [facility] Monocyte % 4 3 - 11 % 07/30/2025 7:53 PM T [facility] Neutrophil Absolute 23.40(H) 1.60 - 7.50 x10E9/L 07/30/2025 7:53 PM T [facility] Lymphocyte Absolute 1.56 1.00 - 4.40 x10E9/L 07/30/2025 7:53 PM T [facility] Monocyte Absolute 1.04(H) 0.15 - 1.00 x10E9/L 07/30/2025 7:53 PM [facility] RBC Morphology NORMAL 07/30/2025 7:53 PM [facility] Blood BLOOD SPECIMEN / Unknown Venipuncture / Unknown 07/30/2025 7:08 PM CDT 07/30/2025 7:16 PM CDT us Kike Busch MD LAB - HEMATOLOGY ORDERABLES Fi nal Result [facility] [address] [place] [address], [facility] [phone] * HCG BETA BLOOD QUANTITATIVE (07/30/2025 7:08 PM CDT) [facility] Beta-hCG Total Quantitative <3 mIU/mL 07/30/2025 10:01 PM CDT [facility] Comment: HCG Numeric Result Interpretation: Non- [...] CDT 07/30/2025 7:16 PM CDT us Trino Mead DO LAB - CHEMISTRY ORDERABLES F inal Result Performing Organization Address [facility] Co de Phone Number [address] [address], [facility] [phone] * (ABNORMAL) ALCOHOL ETHYL BLOOD (07/30/2025 7:08 PM CDT) Ethanol (mg/dL) 204(H) <10 mg/dL 7:44 PM CDT [facility] Ethanol Calculated (g/dL) 0.204(H) <=0.010 g/dL 07/30/2025 7:44 PM CDT [facility] Blood BLOOD SPECIMEN / Unknown Venipuncture / Unknown 07/30/2025 7:08 PM CDT 07/30/2025 7:16 PM CDT Narrative [facility] - 07/30/2025 7:44 PM CDT Ethanol Interp <10: None Detected. Depression of TOP FORMER: >100 mg/dl Potentially Critical: >250 mg/dl Potentially [...] ORDERABLES Fin al Result Performing Organization Address [facility] Co de Phone Number [address] [address], [facility] [phone] from Last 3 Months Insurance MEDICAID HEALTHY BLUE AZEB * Guarantor: Malena Herrera Account Type Relation to Patient Date of Phone Billing Address Third Republican Liability Self 1990 [id number] [place] [address] [employer] MEDICAID HEALTHY BLUE ANTHEM Advance Directives * Full Code (Latest Code Status on File) Date Activated Date Inactivated Comments 07/31/2025 10:55 PM 08/07/2025 9:57 PM * Full Code Date Activated Date Inactivated Comments 07/30/2025 9:54 PM 07/31/2025 10:55 PM Care Teams Food Storeroom Clerk Relationship Specialty Start Date End Date Provider, No Pcp PCP - General 07/30/25
--- OUTSIDE RECORDS SUMMARY | 2025-08-23 11:52 | XMS_ITS | Encounter Summary ---
Author Organization [facility] Address [address] [facility] [place] [address] Care Team Providers Care Machine Puller Over Name Role Phone Provider, No Pcp Primary [...] and heating? Not hard at all 08/02/2025 [facility] [place] [facility] - Occupational Stress [...] any time in the past 12 m [facility], were you homeless or living in a residential (including now)? No 08/02/2025 Comments No Sex [...] Support [facility] - General Surgery [address] [place] [address], [place] [address] documented as of this encounter Visit Diagnoses Not on filedocumented in this encounter Care Teams Machine Puller Over Relationship Specialty Start Date End Date Provider, No Pcp PCP - General 07/30/25 documented as of this encounter
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
[2025-08-23 12:28] LABS: Add Urine Microscopic? NO
[2025-08-23 12:34] LABS: Glucose Urine UA Negative (Normal); Nitrate Urine Negative (Negative); Specific Gravity, Urine 1.023 (1.005-1.030)
[2025-08-23 12:45] LABS: Charge for UA Resulting for Rev
[2025-08-23 13:01] VITALS: BP 112/58; PULSE 75; O2SAT 97
== END 2025-08-23 13:05 | disposition home or self-care (01) ==
PROVIDERS: Emergency Provider Family Medicine
DX: B37.31 Acute candidiasis of vulva and vagina (principal); Z48.02 Encounter for removal of sutures
CPT/HCPCS: 81003; 99283

== ENCOUNTER 2025-08-29 12:26 | Emergency (ER) | payer BC, MEDICAID, SELFPAY ==
[2025-08-29 12:30] VITALS: BP 118/81; PULSE 64; RESP 17; TEMP 37.3; O2SAT 98; BMI 33.6
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
--- OUTSIDE RECORDS SUMMARY | 2025-08-29 12:33 | XMS_ITS | Clinical Summary ---
Author Organization [facility] [employer] Address [address] [place] [address] Care Team Providers Care Electronic Systems Technician Name Role Phone Provider, No Pcp Primary Care Provider Unavailab le Source Comments [facility] [employer]non-owned Affiliates and Associated Physician Practices is amultiple site organization consisting of ambulatory clinics and hospital sitesin [place], [place], [place] and [place]. This disclosure is being madepursuant to the Care Everywhere program and may not contain all information available regarding this patient. Last updated 18.[facility] [employer] Allergies Active Allergy Reactions Criticality Noted Date [...] Travel 07/31/2025 7:57 PM CDT Anesthesia Event [facility] [address] [place] [address] Nate Zhong MD 07/31/2025 7:55 PM CDT Anesthesia Event [facility] [address] [place] [address] Alexandre Gonsalez MD Hunsaker, Madelyn, MD 07/31/2025 6:20 PM CDT - 07/31/2025 9:38 PM CDT Surgery [facility] [address] [place] [address] Dominic Bartlett MD LAPAROSCOPY DIAGNOSTIC, ILEOCECECTOMY WITH ANASTAMOSIS, PARTIAL RESECTION OF OMENTUM LEVEL 5 @ 1134 07/30/2025 7:00 PM CDT - 08/07/2025 8:47 PM CDT Hospital Encounter [facility] [address] [place] [address] Trino Mead DO Freeman, Carl A, MD [...] and heating? Not hard at all 08/02/2025 [facility] - Occupational Stress [...] any time in the past 12 m [facility], were you homeless or living in a alf (including now)? No 08/02/2025 Comments No Sex [...] Support [facility] - General Surgery [address] [place] [address], [place] [id number] Health Maintenance Due Date Last Done Comments [...] TUBE NOTE Routine 07/31/2025 8:12 PM CDT DC LAP,DIAGNOSTIC ABDOMEN 07/31/2025 7:31 PM CDT Mesenteric [...] BLOOD STAT 07/30/2025 7 :08 PM CDT DC LAP,DIAGNOSTIC ABDOMEN Mesenteric bleeding from Last 3 [...] Cardenas MD on 58:59 PM Rita Augustin CLINICAL DERMATOLOGIST-CIVIL DIVISION COMMANDER DEPUTY SHERIFF DIAGNOSTIC IMAGING ORDER INDIRA Final Result * (ABNORMAL) CBC W/O DIFFERENTIAL (08/04/2025 12:09 AM CDT) Only the most recent of4 resultswithin the time period is included. WBC 5.5 4.0 - 10.7 x10E9/L 08/04/2025 12:46 AM [facility] RBC Count 3.05(L) 3.90 - 5.20 x10E12/L 08/04/2025 12:46 AM [facility] Hemoglobin 10.2(L) 11.9 - 15.8 g/dL 08/04/2025 12:46 AM [facility] Hematocrit 30.0(L) 34.8 - 46.1 % 08/04/2025 12:46 AM [facility] MCV 98.4(H) 80.0 - 98.0 fL 08/04/2025 12:46 AM [facility] MCH 33.4 26.7 - 33.6 pg 08/04/2025 12:46 AM [facility] MCHC 34.0 31.7 - 36.3 g/dL 08/04/2025 12:46 AM [facility] RDW-CV 14.1 11.3 - 14.8 % 08/04/2025 12:46 AM [facility] Platelet Count 236 150 - 420 x10E9/L 08/04/2025 12:46 AM [facility] MPV 10.1 7.8 - 11.4 fL 08/04/2025 12:46 AM [facility] Blood BLOOD SPECIMEN / Unknown Lab Venipuncture / Unknown 08/04/2025 12:09 AM CDT 08/04/2025 12:34 AM T us Trino Mead DO LAB - HEMATOLOGY ORDERABLES Final Result [facility] [address] [place] [address], [facility] [phone] * (ABNORMAL) BASIC METABOLIC PANEL (CALCIUM TOTAL) (08/04/2025 12:09 AM CDT) Only the most recent of6 resultswithin the time period is included. BUN 7 7 - 26 mg/dL 08/04/2025 1:05 AM [facility] Creatinine 0.68 0.56 - 0.96 mg/dL 08/04/2025 1:05 AM [facility] Sodium 135(L) 136 - 145 mmol/L 08/04/2025 1:05 AM [facility] Potassium 3.7 3.5 - 4.5 mmol/L 08/04/2025 1:05 AM [facility] Chloride 102 98 - 107 mmol/L 08/04/2025 1:05 AM [facility] CO2 28 22 - 29 mmol/L 08/04/2025 1:05 AM [facility] Glucose 91 70 - 99 mg/dL 08/04/2025 1:05 AM [facility] Calcium 8.3(L) 8.4 - 10.2 mg/dL 08/04/2025 1:05 AM [facility] Anion Gap 5(L) 6 - 16 08/04/2025 1:05 AM [facility] BUN/Creatinine Ratio 10 7 - 23 08/04/2025 1:05 AM [facility] Osmolality Calculated 278 275 - 295 mOsm/kg 08/04/2025 1:05 AM [facility] eGFR by CKD-EPI >90 >=90 mL/min/1.7 3 m2 08/04/2025 1:05 AM [facility] Comment:Estimated Glomerular Filtration Rate (eGFR) calculated using the CKD-EPI Creatinine Equation (2020), per the National Kidney Foundation and [place] Society of Nephrology recommendations. Blood BLOOD SPECIMEN / Unknown Lab Venipuncture / Unknown 08/04/2025 12:09 AM CDT 08/04/2025 12:34 AM [facility] us Trino Mead DO LAB - CHEMISTRY ORDERABLES F inal Result [facility] [address] [place] [address], [facility] [phone] * PHOSPHORUS BLOOD (08/04/2025 12:09 AM CDT) Only the most recent of5 resultswithin the time period is included. Phosphorus 3.7 2.9 - 5.1 mg/dL 08/04/2025 1:29 AM CDT [facility] Blood BLOOD SPECIMEN / Unknown Lab Venipuncture / Unknown 08/04/2025 12:09 AM CDT 08/04/2025 12:34 AM CDT [facility] LAB - CHEMISTRY ORDERABLES F inal Result [address] [address], [facility] [phone] * MAGNESIUM BLOOD (08/04/2025 12:09 AM CDT) Only the most recent of5 resultswithin the time period is included. Pathologist [facility] Magnesium 1.6 1.6 - 2.6 mg/dL 08/04/2025 1:05 AM CDT [facility] Blood BLOOD SPECIMEN / Unknown Lab Venipuncture / Unknown 08/04/2025 12:09 AM CDT 08/04/2025 12:34 AM CDT [facility] LAB - CHEMISTRY ORDERABLES F inal Result Performing Organization Address City/[facility]/ZIP Co de Phone Number [address] [address], [facility] [phone] * (ABNORMAL) CBC W AUTO DIFFERENTIAL (08/03/2025 11:51 PM CDT) Only the most recent of3 resultswithin the time period is included. WBC 5.6 4.0 - 10.7 x10E9/L 08/04/2025 12:53 AM CDT [facility] RBC Count 3.10(L) 3.90 - 5.20 x10E12/L 08/04/2025 12:53 AM CDT [facility] Hemoglobin 10.1(L) 11.9 - 15.8 g/dL 08/04/2025 12:53 AM [facility] Hematocrit 30.4(L) 34.8 - 46.1 % 08/04/2025 12:53 AM [facility] MCV 98.1(H) 80.0 - 98.0 fL 08/04/2025 12:53 AM [facility] MCH 32.6 26.7 - 33.6 pg 08/04/2025 12:53 AM [facility] MCHC 33.2 31.7 - 36.3 g/dL 08/04/2025 12:53 AM [facility] RDW-CV 14.1 11.3 - 14.8 % 08/04/2025 12:53 AM [facility] Platelet Count 241 150 - 420 x10E9/L 08/04/2025 12:53 AM [facility] MPV 9.9 7.8 - 11.4 fL 08/04/2025 12:53 AM [facility] Neutrophil % 66.3 41.0 - 74.0 % 08/04/2025 12:53 AM [facility] Lymphocyte % 21.6 17.0 - 47.0 % 08/04/2025 12:53 AM [facility] Monocyte % 9.5 3.0 - 11.0 % 08/04/2025 12:53 AM [facility] Eosinophil % 2.0 0.0 - 7.0 % 08/04/2025 12:53 AM [facility] Basophil % 0.2 0.0 - 1.6 % 08/04/2025 12:53 AM [facility] Immature Granulocytes % 0.4 0.0 - 1.0 % 08/04/2025 12:53 AM [facility] Neutrophil Absolute 3.68 1.60 - 7.50 x10E9/L 08/04/2025 12:53 AM [facility] Lymphocyte Absolute 1.20 1.00 - 4.40 x10E9/L 08/04/2025 12:53 AM [facility] Monocyte Absolute 0.53 0.15 - 1.00 x10E9/L 08/04/2025 12:53 AM CDT [facility] Eosinophil Absolute 0.11 0.00 - 0.60 x10E9/L 08/04/2025 12:53 AM CDT [facility] Basophil Absolute 0.01 0.00 - 0.13 x10E9/L 08/04/2025 12:53 AM CDT [facility] Blood BLOOD SPECIMEN / Unknown Lab Venipuncture / Unknown 08/03/2025 11:51 PM CDT 08/04/2025 12:15 AM CDT us Kike Busch MD LAB - HEMATOLOGY ORDERABLES Fi nal Result [facility] [address] [place] [address], [facility] [phone] * XR Knee Right 3Vw (08/01/2025 12:36 PM CDT) Anatomical Region Laterality Modality Lower Extremity Digital Radiogra phy 08/01/2025 3:32 PM CDT Impressions 08/01/2025 6:10 PM CDT IMPRESSION: No acute fracture or dislocation of knee identified. > Dictated by [facility] (radiology practitioner assistant). > Dictated by Credit Risk Analytics Manager I, Bri Nuñez MD have personally reviewed and interpreted this examination/study. > Interpreting Provider: Bri Nuñez MD on 08/01/2025 6:10 PM Narrative 08/01/2025 6:10 PM CDT EXAMINATION: XR KNEE RIGHT 3VW DATE/TIME OF EXAM: 08/01/2025 12:36 PM, LOCATION [facility] HISTORY: T14.90XA: Trauma right knee pain/ecchymosis COMPARISON: No prior. FINDINGS: No joint effusion is seen. Bone density and texture are normal. No soft tissue swelling is present. Procedure Note Bri Nuñez MD - 08/01/2025 EXAMINATION: XR KNEE RIGHT 3VW DATE/TIME OF EXAM: 08/01/2025 12:36 PM, [facility] HISTORY: T14.90XA: Trauma right knee pain/ecchymosis COMPARISON: No prior. FINDINGS: No joint effusion is seen. Bone density and texture are normal. No soft tissue swelling is present. IMPRESSION: No acute fracture or dislocation of knee identified. > Dictated by [facility] (radiology practitioner assistant). > Dictated by Credit Risk Analytics Manager I, Bri Nuñez MD have personally reviewed and interpreted this examination/study. > Interpreting Provider: Bri Nuñez MD on 08/01/2025 6:10 PM us Alyssa Cristy Wmnidia CLINICAL DERMATOLOGIST-STEELSCOPE OPERATOR DIAGNOSTIC IMAGING ORDERA BLES Final Result * PATHOLOGY TISSUE (07/31/2025 9:26 PM CDT) Case Report Surgical Pathology Report Case: [id number] Authorizing Provider: Dominic Bartlett MD Collected: 07/31/2025 09:26 PM Ordering Location: [facility] Received: 08/01/2025 04:49 AM Pathologist: [...] cecal, and appendix injury 08/02/2025 10:23 AM [facility] Gross Description The requisition and [...] perforation. There are no additional gross lesions. Electrical Foreman sections are submitted as follows: A1-proximal terminal [...] peripheral hemorrhage. There are no gross lesions. Electrical Foreman sections are submitted in cassette B1-B2 IKD. 08/02/2025 10:23 AM [facility] Pathologist Location at [facility] 08/02/2025 10:23 AM [facility] Disclaimer The performance characteristics of all immunohistochemical and indirect immunofluorescence stains (if any) cited in this report were determined by the Histopathology Laboratory of [facility]. Some of these tests were developed by [...] attending (teaching) pathologist. 08/02/2025 10:23 AM CDT [facility] Embedded Images 08/02/2025 10:23 AM CDT [facility] Resection without Tumor ENTIRE ILEUM / Unknown 07/31/2025 9:26 PM CDT 08/01/2025 4:49 AM CDT Resection without Tumor ENTIRE OMENTUM / Unknown 07/31/2025 9:27 PM CDT 08/01/2025 4:49 AM CDT us Dominic Bartlett MD LAB - PATHOLOGY/CYTOLOGY ORD ERABLES Final Result [facility] [address] [phone] * ETT LINE PERFORMABLE (07/31/2025 8:12 PM CDT) Narrative Neal Merino MD - 07/31/2025 8:12 PM CDT Neal Merino MD 07/31/2025 8:12 PM Endotracheal Tube Placement: Patient Location: OR. Intubation Event Date/Time: 07/31/2025 8:02 PM Procedure: intubation ([id number]) Procedure Section: Sedation: under general anesthesia. Indications [...] 1.8 <=2.0 mmol/L 07/31/2025 11:56 AM CDT [facility] Blood BLOOD SPECIMEN / Unknown Lab Venipuncture / Unknown 07/31/2025 10:33 AM CDT 07/31/2025 11:28 AM CDT us Trino Mead DO LAB - CHEMISTRY ORDERABLES F inal Result [address] [address], [facility] [phone] * CT Abdomen Pelvis W Contrast (07/31/2025 [...] ischemia. > Dictated by Randal Rivas MD (radiology practitioner assistant). > Dictated by Credit Risk Analytics Manager IStephanie MD have personally reviewed and interpreted this examination/study. > Interpreting Provider: Stephanie Garcia MD on 07/31/2025 11:28 AM Narrative 07/31/2025 11:28 AM CDT PROCEDURE: CT ABDOMEN PELVIS W CONTRAST, DATE/TIME OF EXAM: 07/31/2025 4:27 AM, LOCATION [facility] INDICATION: T14.90XA: Trauma ADDITIONAL CLINICAL INFORMATION: Ordering [...] DATE/TIME OF EXAM: 07/31/2025 4:27 AM, LOCATION [facility] INDICATION: T14.90XA: Trauma ADDITIONAL CLINICAL INFORMATION: Ordering [...] ischemia. > Dictated by Randal Rivas MD (radiology practitioner assistant). > Dictated by Credit Risk Analytics Manager Stephanie Treadwell MD have personally reviewed and interpreted this examination/study. > Interpreting Provider: Stephanie Garcia MD on 07/31/2025 11:28 AM Kike Busch MD CT ORDERABLES Final Result * (ABNORMAL) URINALYSIS REFLEX TO MICROSCOPIC NO CULTURE (07/31/2025 4:02 AM [facility]) Color UA Yellow Yellow, Straw 07/31/2025 4:32 AM [facility] Clarity UA Clear Clear 07/31/2025 4:32 AM [facility] Glucose UA Normal Normal 07/31/2025 4:32 AM [facility] Bilirubin UA Negative Negative 07/31/2025 4:32 AM [facility] Ketone UA Negative Negative 07/31/2025 4:32 AM [facility] Specific [place] UA 1.037(H) 1.005 - 1.030 07/31/2025 4:32 AM [facility] Blood UA 1+(A) Negative 07/31/2025 4:32 AM [facility] pH UA 6.0 5.0 - 8.0 07/31/2025 4:32 AM [facility] Protein UA Negative Negative 07/31/2025 4:32 AM [facility] Urobilinogen UA Normal Normal mg/dL 025 4:32 AM [facility] Nitrite UA Negative Negative 07/31/2025 4:32 AM [facility] Leukocyte Esterase UA Negative Negative 07/31/2025 4:32 AM [facility] RBC UA 21-50(A) 0 - 5 # /hpf 07/31/2025 4:32 AM [facility] WBC UA 0-5 0 - 5 # /hpf 07/31/2025 4:32 AM [facility] Bacteria UA None Seen None Seen 07/31/2025 4:32 AM [facility] Squamous Epithelial Cells 6-10 0 - 5 /hpf 07/31/2025 4:32 AM [facility] Mucus UA 1+ /LPF 07/31/2025 4:32 AM [facility] Hyaline Casts 0-2 0 - 2 /LPF 07/31/2025 4:32 AM [facility] Urine URINE SPECIMEN OBTAINED BY CLEAN CATCH PROCEDURE / Unknown Collection / Unknown 07/31/2025 4:02 AM CDT 07/31/2025 4:06 AM CDT Narrative [facility] - 07/31/2025 4:32 AM CDT Trino Mead DO LAB - URINALYSIS ORDERABLES Final Result [facility] [address] [place] [address], [facility] [phone] * (ABNORMAL) URINE DRUG SCREEN IMMUNOASSAY (07/31/2025 4:02 AM CDT) [facility] Amphetamines Screen Urine Negative Negative : < 1000 ng/mL 07/31/2025 4:34 AM [facility] Barbiturates Screen Urine Negative Negative : < 200 ng/mL 07/31/2025 4:34 AM [facility] Benzodiazepine Screen Urine Negative Negative : < 200 ng/mL 07/31/2025 4:34 AM [facility] Opiates Urine Negative Negative : < 300 ng/mL 07/31/2025 4:34 AM [facility] Cocaine Metabolites Urine Negative Negative : < 300 ng/mL 07/31/2025 4:34 AM [facility] Phencyclidine Screen Urine Negative Negative : < 25 ng/ml 07/31/2025 4:34 AM [facility] Cannabinoids Screen Urine Negative Negative : <50 ng/mL 07/31/2025 4:34 AM [facility] Methadone Screen Urine Negative Negative : < 300 ng/mL 07/31/2025 4:34 AM [facility] Fentanyl Screen Urine Positive(A) Negative : <1.5 ng/mL 07/31/2025 4:34 AM [facility] Comment:Positive urine fenta nyl screening results should be confirmed by another generally accepted non-immunological method such as gas chromatography or mass spectrometry. Urine URINE / Unknown Collection / Unknown 07/31/2025 4:02 AM CDT 07/31/2025 4:07 AM CDT Narrative [facility] - 07/31/2025 4:34 AM CDT The Urine Toxicology Screening Panel does not screen for Propoxyphene, Meprobamate, Carisoprodol, Trazodone, uppj-qml-jltdbsj medications and/or volatiles (Acetone, Isopropanol, Methanol or Ethylene Glycol). Ethanol, Salicylate, Acetaminophen, Tricyclic Antidepressants and several therapeutic drugs may be individually assayed in serum or plasma specimen. Toxicology testing by the [facility] is an aid to medical diagnosis and treatment of patients. No documented chain of custody was maintained. Results are intended to be used for clinical purposes only. Kike Busch MD LAB - URINE CHEMISTRY ORDERABL ES Final Result Performing Organization Address City/[facility]/ZIP Co de Phone Number [facility] [address] [place] [address], [facility] [phone] * BLOOD TYPE VERIFICATION (07/31/2025 12:18 AM CDT) ABO Rh A POS 07/31/2025 1:2 3 AM CDT [facility] Blood Bank BLOOD SPECIMEN / Unknown Lab Venipuncture / Unknown 07/31/2025 12:18 AM CDT 07/31/2025 12:38 AM CDT Trino Mead DO LAB - BLOOD BANK ORDERABLES Final Result Performing Organization Address [facility] de Phone Number [facility] [address] [place] [address], [facility] [phone] * CT CHEST ABDOMEN PELVIS W CONT [...] by Sanjuana Sanders MD > Dictated by Credit Risk Analytics Manager IStephanie MD have personally reviewed and interpreted this examination/study. > Interpreting Provider: Stephanie Garcia MD on 07/30/2025 11:25 PM Narrative 07/30/2025 11:25 PM CDT PROCEDURE: CT CHEST ABDOMEN PELVIS W CONT, DATE/TIME OF EXAM: 07/30/2025 7:45 PM, LOCATION [facility] INDICATION: T14.90XA: Trauma COMPARISON: None. TECHNIQUE: CT [...] CONT, DATE/TIME OF EXAM:07/30/2025 7:45 PM, LOCATION [facility] INDICATION: T14.90XA: Trauma COMPARISON: None. TECHNIQUE: CT [...] by Sanjuana Sanders MD > Dictated by Credit Risk Analytics Manager IStephanie MD have personally reviewed and interpreted [...] verification. > Dictated by Arie Rodriguez MD, (radiology practitioner assistant) 07/30/2025 7:48 PM. > Dictated by Credit Risk Analytics Manager I, Allegra Ness MD have personally reviewed and interpreted this examination/study. > Interpreting Provider: Allegra Ness MD on 07/30/2025 9:23 PM Narrative 07/30/2025 9:23 PM CDT PROCEDURE: CT HEAD WO CONTRAST, CT LUMBAR SPINE WO CONTRAST, CT THORACIC SPINE WO CONTRAST, CT CERVICAL SPINE WO CONTRAST, DATE/TIME OF EXAM: 07/30/2025 7:45 PM, LOCATION [facility] INDICATION: T14.90XA: Trauma EXAMINATION: 1.Computed tomography (CT) [...] DATE/TIME OF EXAM: 07/30/2025 7:45 PM, LOCATION [facility] INDICATION: T14.90XA: Trauma EXAMINATION: 1.Computed tomography (CT) [...] verification. > Dictated by Arie Rodriguez MD, (radiology practitioner assistant) 07/30/2025 7:48 PM. > Dictated by Credit Risk Analytics Manager Allegra Treadwell MD have personally reviewed and [...] verification. > Dictated by Arie Rodriguez MD, (radiology practitioner assistant) 07/30/2025 7:48 PM. > Dictated by Credit Risk Analytics Manager Allegra Treadwell MD have personally reviewed and interpreted this examination/study. > Interpreting Provider: Allegra Ness MD on 07/30/2025 9:23 PM Narrative 07/30/2025 9:23 PM CDT PROCEDURE: CT HEAD WO CONTRAST, CT LUMBAR SPINE WO CONTRAST, CT THORACIC SPINE WO CONTRAST, CT CERVICAL SPINE WO CONTRAST, DATE/TIME OF EXAM: 07/30/2025 7:45 PM, LOCATION [facility] INDICATION: T14.90XA: Trauma EXAMINATION: 1.Computed tomography (CT) [...] DATE/TIME OF EXAM: 07/30/2025 7:45 PM, LOCATION [facility] INDICATION: T14.90XA: Trauma EXAMINATION: 1.Computed tomography (CT) [...] verification. > Dictated by Arie Rodriguez MD, (radiology practitioner assistant) 07/30/2025 7:48 PM. > Dictated by Credit Risk Analytics Manager I, Allegra Ness MD have personally reviewed [...] verification. > Dictated by Arie Rodriguez MD, (radiology practitioner assistant) 07/30/2025 7:48 PM. > Dictated by Credit Risk Analytics Manager I, Allegra Ness MD have personally reviewed and interpreted this examination/study. > Interpreting Provider: Allegra Ness MD on 07/30/2025 9:23 PM Narrative 07/30/2025 9:23 PM CDT PROCEDURE: CT HEAD WO CONTRAST, CT LUMBAR SPINE WO CONTRAST, CT THORACIC SPINE WO CONTRAST, CT CERVICAL SPINE WO CONTRAST, DATE/TIME OF EXAM: 07/30/2025 7:45 PM, LOCATION [facility] INDICATION: T14.90XA: Trauma EXAMINATION: 1.Computed tomography (CT) [...] DATE/TIME OF EXAM: 07/30/2025 7:45 PM, LOCATION [facility] INDICATION: T14.90XA: Trauma EXAMINATION: 1.Computed tomography (CT) [...] verification. > Dictated by Arie Rodriguez MD, (radiology practitioner assistant) 07/30/2025 7:48 PM. > Dictated by Credit Risk Analytics Manager I, Allegra Ness MD have personally reviewed [...] verification. > Dictated by Arie Rodriguez MD, (radiology practitioner assistant) 07/30/2025 7:48 PM. > Dictated by Credit Risk Analytics Manager IAllegra MD have personally reviewed and interpreted this examination/study. > Interpreting Provider: Allegra Ness MD on 07/30/2025 9:23 PM Narrative 07/30/2025 9:23 PM CDT PROCEDURE: CT HEAD WO CONTRAST, CT LUMBAR SPINE WO CONTRAST, CT THORACIC SPINE WO CONTRAST, CT CERVICAL SPINE WO CONTRAST, DATE/TIME OF EXAM: 07/30/2025 7:45 PM, LOCATION [facility] INDICATION: T14.90XA: Trauma EXAMINATION: 1.Computed tomography (CT) [...] DATE/TIME OF EXAM: 07/30/2025 7:45 PM, LOCATION [facility] INDICATION: T14.90XA: Trauma EXAMINATION: 1.Computed tomography (CT) [...] verification. > Dictated by Arie Rodriguez MD, (radiology practitioner assistant) 07/30/2025 7:48 PM. > Dictated by Credit Risk Analytics Manager I, Allegra Ness MD have personally reviewed [...] PM CDT) Unit Description AS1 LR PRBC [facility] Unit ABO A [facility] Unit Rh POS [facility] Product [facility] R02 [facility] Unit Donor # [id number] [facility] Unit Status released [facility] Product [facility] [id number] [facility] Blood Type Barcode 6200 [facility] Expiration Date S [facility] Unit Description AS1 LR PRBC [facility] Unit ABO A [facility] Unit Rh POS [facility] Product [facility] R02 [facility] Unit Donor # [id number] [facility] Unit Status released [facility] Product [facility] [id number] [facility] Blood Type Barcode 6200 [facility] Expiration Date S [facility] Unit Description AS1 LR PRBC [facility] Unit ABO A [facility] Unit Rh POS [facility] Product [facility] R02 [facility] Unit Donor # [id number] [facility] Unit Status released [facility] Product [facility] [id number] [facility] Blood Type Barcode 6200 [facility] Expiration Date S [facility] Unit Description AS1 LR PRBC [facility] Unit ABO A [facility] Unit Rh POS [facility] Product [facility] R02 [facility] Unit Donor # [id number] [facility] Unit Status released [facility] Product Code [id number] [facility] Blood Type Barcode 6200 [facility] Expiration Date S BLOOD BANK LAB Blood Bank BLOOD SPECIMEN / Unknown 07/30/2025 7:08 PM CDT 07/30/2025 7:20 PM CDT Trino Mead DO LAB - BLOOD BANK ORDERABLES Final Result Performing Organization Address City/[facility]/ZIP Co de Phone Number [facility] BLOOD [facility] LAB [address] [place] [address], [facility] [phone] * TYPE + SCREEN PANEL (07/30/2025 7:08 PM CDT) Antibody Screen NEG 7:58 PM CDT [facility] ABO Rh A POS 07/30/2025 7:58 PM CDT [facility] Blood Bank BLOOD SPECIMEN / Unknown Venipuncture / Unknown 07/30/2025 7:08 PM CDT 07/30/2025 7:20 PM CDT Kike Busch MD LAB - BLOOD BANK ORDERABLES Fi nal Result [facility] [address] [place] [address], [facility] [phone] * PTT (07/30/2025 7:08 PM CDT) [facility] APTT 24.9 23.0 - 38.4 Seconds 07/30/2025 7:41 PM CDT [facility] Comment:Suggested therapeuti c range for full dose I.V. unfractionated heparin therapy for venous thromboembolism is 71 to 109 seconds. Blood BLOOD SPECIMEN / Unknown Venipuncture / Unknown 07/30/2025 7:08 PM CDT 07/30/2025 7:14 PM CDT Kike Busch MD LAB - COAGULATION ORDERABLES F inal Result Performing Organization Address [facility] Co de Phone Number [address] [address], [facility] [phone] * PT-INR (07/30/2025 7:08 PM CDT) [facility] PT 14.5 12.1 - 14.8 Seconds 07/30/2025 7:41 PM CDT [facility] INR 1.2 See Comment 07/30/2025 7:41 PM CDT [facility] Comment:The suggested therap eutic range for standard coumadin (warfarin) therapy is an INR of 2.0-3.0. For high-risk patients (Mechanical Mitral Valve Prosthesis, etc.), the suggested prophylactic therapeutic range is an INR of 2.5-3.5. Blood BLOOD SPECIMEN / Unknown Venipuncture / Unknown 07/30/2025 7:08 PM CDT 07/30/2025 7:14 PM CDT Kike Busch MD LAB - COAGULATION ORDERABLES F inal Result Performing Organization Address City/[facility]/ZIP Co de Phone Number [address] [address], [place] [phone] * (ABNORMAL) DIFFERENTIAL MANUAL (07/30/2025 7:08 PM CDT) Pathologist [facility] Neutrophil % 90(H) 41 - 74 % 07/30/2025 7:53 PM CDT [facility] Lymphocyte % 6(L) 17 - 47 % 07/30/2025 7:53 PM [facility] Monocyte % 4 3 - 11 % 07/30/2025 7:53 PM [facility] Neutrophil Absolute 23.40(H) 1.60 - 7.50 x10E9/L 07/30/2025 7:53 PM [facility] Lymphocyte Absolute 1.56 1.00 - 4.40 x10E9/L 07/30/2025 7:53 PM [facility] Monocyte Absolute 1.04(H) 0.15 - 1.00 x10E9/L 07/30/2025 7:53 PM [facility] RBC Morphology NORMAL 07/30/2025 7:53 PM [facility] Blood BLOOD SPECIMEN / Unknown Venipuncture / Unknown 07/30/2025 7:08 PM CDT 07/30/2025 7:16 PM CDT us Kike Busch MD LAB - HEMATOLOGY ORDERABLES Fi nal Result [facility] [address] [place] [address], [facility] [phone] * HCG BETA BLOOD QUANTITATIVE (07/30/2025 7:08 PM CDT) Beta-hCG Total Quantitative <3 mIU/mL 07/30/2025 10:01 PM T [facility] Comment: HCG Numeric Result Interpretation: Non- [...] ORDERABLES F inal Result Performing Organization Address [facility] Co de Phone Number [address] [address], [facility] [phone] * (ABNORMAL) ALCOHOL ETHYL BLOOD (07/30/2025 7:08 PM CDT) Ethanol (mg/dL) 204(H) <10 mg/dL 7:44 PM CDT [facility] Ethanol Calculated (g/dL) 0.204(H) <=0.010 g/dL 07/30/2025 7:44 PM CDT [facility] Blood BLOOD SPECIMEN / Unknown Venipuncture / Unknown 07/30/2025 7:08 PM CDT 07/30/2025 7:16 PM CDT Narrative [facility] - 07/30/2025 7:44 PM CDT Ethanol Interp <10: None Detected. Depression of [employer]: >100 mg/dl Potentially Critical: >250 mg/dl Potentially [...] ORDERABLES Fin al Result Performing Organization Address [facility] Co de Phone Number [address] [address], [facility] [phone] from Last 3 Months Insurance MEDICAID HE[employer]Y BLUE [employer] * Guarantor: Malena Herrera Account Type Relation to Patient Date of Phone Billing Address Third Constitution Party Liability Self 1990 [id number] [place] [address] [employer] THIRD [employer] LIABILITY MEDICAID [employer]UE [employer] Advance Directives * Full Code (Latest Code Status on File) Date Activated Date Inactivated Comments 07/31/2025 10:55 PM 08/07/2025 9:57 PM * Full Code Date Activated Date Inactivated Comments 07/30/2025 9:54 PM 07/31/2025 10:55 PM Care Teams Electronic Systems Technician Relationship Specialty Start Date End Date Provider, No Pcp PCP - General 07/30/25
[2025-08-29 12:58] LABS: Hematocrit 37.9 % (36-47); Hemoglobin 12.30 g/dL (11.27-16.99); Mean Corpuscular HGB Conc 32.5 g/dL (30-55); Mean Corpuscular Hemoglobin 31.7 pg (27-33); Mean Corpuscular Volume 97.7 fl (85-98); Nucleated Red Blood Cells % 0 %; Platelet Count 240 10^3/cmm (157-399); Red Blood Count 3.88 10^6/uL (3.85-5.65); White Blood Count 10.59 10^3/uL (3.29-11.43)
[2025-08-29 13:17] LABS: HCG, Serum Qual Negative (Negative)
[2025-08-29 13:22] LABS: Lactic Sepsis W/Reflex 2.4 mmol/L (0.5-2.2)
[2025-08-29 13:23] LABS: Alanine Aminotransferase 24 U/L (0-33); Albumin Level 4.2 g/dL (3.5-5.2); Alkaline Phosphatase 115 U/L (35-105); Anion Gap 17.6 (5-19); Aspartate Amino Transferase 19 U/L (0-32); Blood Urea Nitrogen 8 mg/dL (6-20); Calcium 9.3 mg/dL (8.5-10.5); Carbon Dioxide 23 mmol/L (22-29); Chloride 102 mmol/L (98-107); Creatinine Clr Calc Pharmacy 136.1748; Globulin 2.9 g/dL (1.3-4.6); Glucose 100 mg/dL (65-115); Osmolality Calculated 286 mOsm/kg (285-295); Potassium 3.6 mmol/L (3.5-5.1); Sodium 139 mmol/L (136-145); Total Protein 7.1 g/dL (6.6-8.7)
[2025-08-29 13:28] LABS: Glucose Urine UA Negative (Normal); Nitrate Urine Negative (Negative); Specific Gravity, Urine 1.023 (1.005-1.030)
--- NOTE | 2025-08-29 13:30 | CT_ITS ---
WS: [id number] CT ABDOMEN AND PELVIS WITH CONTRAST HISTORY: abdominal pain low-grade fever TECHNIQUE: Imaging performed of the abdomen and pelvis with IV contrast. Single phase imaging of the abdomen. Coronal and sagittal reformats are submitted. All CT scans at [facility] use at least one of these dose optimization techniques: automated exposure control; mA and/or kV adjustment per patient size (includes targeted exams where dose is matched to clinical indication); or iterative reconstruction. IV CONTRAST: Omnipaque 350; 100 mL IV. Oral contrast: No DLP: 737.23 mGy.cm COMPARISON: 08/17/2025 Lower thorax: Lung bases are clear. Normal size heart. There is a tiny amount of air in the RIGHT ventricle which may be due to the contrast injection. No hiatal hernia. Liver/biliary system: No interval change. Normal portal vein. Gallbladder: Gallbladder is contracted. Pancreas: Normal size pancreas and pancreatic duct. No adjacent inflammation. Spleen: Normal size spleen. No mass or infarct. Adrenal glands: Normal. Right kidney: No perinephric stranding or obstruction. Very subtle area of decreased attenuation in the lower pole is similar to the prior study. Left kidney: Normal size with no obstruction. No perinephric stranding. Aorta: Normal. Lymphadenopathy: None. Free fluid: None. GI tract: Stomach is slightly distended with fluid. No small bowel obstruction. Status post recent partial bowel resection. Anastomotic site in the RIGHT lower quadrant is similar to the prior study. There is no associated fluid collection or abscess. No perforation. There is some very mild hyperemia and wall thickening involving the proximal anastomotic site but very similar to the prior study. No obvious ischemic change. There is some very mild mesenteric edema and stranding associated with the anastomotic site and RIGHT lower quadrant. No obstructive pattern. The distal colonic wall is very 6 months slightly enhancing with mild wall thickening. Abdominal wall: Postsurgical incision site along the anterior abdominal wall. No fluid collections or complications. Reidentified is the nonenhancing fluid collection over the RIGHT lateral abdominal wall most consistent with a seroma. Pelvis: No free fluid. RIGHT ovarian 1.7 cm follicle. Bones: Unremarkable. CT/CT abdomen pelvis w con* [id number] IMPRESSION: 1. No acute interval change within the abdomen or pelvis since 08/17/2025. 2. The anastomotic site in the RIGHT lower quadrant from partial bowel resecti on is reidentified. There is no obstructive pattern. 3. There is mild hyperemia at the proximal anastomotic site but no obstructive pattern. No evidence for convincing ischemia at this time. There is no perfora tion or abscess. 4. There is mild colonic wall enhancement and slight stranding. New since the prior study. Consider early changes of infectious colitis. There is no abscess or free fluid. 5. Stable nonenhancing fluid collection along the RIGHT lateral abdominal wall . 6. There are a few tiny foci of air in the RIGHT ventricle which may be from t he contrast injection.
[2025-08-29] MEDS: iohexol 350 mg/mL 500 mL Btl (per mL) IV (13:44)
[2025-08-29 14:41] LABS: Reflex Lactate Order REFLEX LACTIC ORDERD
[2025-08-29 14:48] LABS: Neisseria Gonorrhea NOT DETECTED (Negative)
[2025-08-29 15:08] VITALS: BP 105/75; PULSE 60; O2SAT 100
[2025-08-29 15:09] VITALS: BP 105/75; PULSE 75; RESP 16; O2SAT 96
== END 2025-08-29 15:13 | disposition home or self-care (01) ==
PROVIDERS: Emergency Medicine; Emergency Provider Family Medicine
DX: K52.9 Noninfective gastroenteritis and colitis, unspecified (principal)
CPT/HCPCS: 36415; 74177; 80053; 81001; 83605; 84703; 85025; 86140; 87210; 87491; 87591; 99285

== ENCOUNTER 2025-11-09 07:17 | Emergency (ER) | payer BC, MEDICAID, SELFPAY ==
[2025-11-09] VITALS (11 sets, daily range): BP systolic 93–127; BP diastolic 45–86; PULSE 49–73; RESP 16–18; TEMP 36.4; O2SAT 95–99; BMI 32.9
--- OUTSIDE RECORDS SUMMARY | 2025-11-09 07:21 | XMS_ITS | Clinical Summary ---
Author Organization [facility] [employer] Address [address] [place] [address] Care Team Providers Care Safety Technician Name Role Phone Provider, No Pcp Primary Care Provider Unavailab le Source Comments [facility] [employer],non-owned Affiliates and Associated Physician Practices is amultiple site organization consisting of ambulatory clinics and hospital sitesin [place], [place], [place] and [place]. This disclosure is being madepursuant to the Care Everywhere program and may not contain all information available regarding this patient. Last updated 18.[facility] [employer] Allergies Active Allergy Reactions Criticality Noted Date [...] Type Department Care Team Description 08/16/2025 Travel from Last 3 Months Immunizations Immunization [...] and heating? Not hard at all 08/02/2025 [facility] [place] [facility] Occupat ional [facility] - Occupational Stress [...] any time in the past 12 m [facility], were you homeless or living in a correction (including now)? No 08/02/2025 Comments No Sex [...] 07/31/2025 12:00 AM CDT Plan of Treatment Health Maintenance Due Date Last Done Comments HIV SCREENING 2005 HEPATITIS C SCREENING 05/12/2008 HEPATITIS B VACCINE (1 of 3 - 19+ 3-dose series) 2009 PNEUMOCOCCAL VACCINE (1 of 2 - PCV) 2009 PAP SMEAR 08/21/2013 08/21/2010 HPV VACCINE (1 - 3-dose SCDM series) 2017 DEPRESSION SCREENING 11/17/2024 COVID-19 VACCINE (1 - 2024-2 6 season) 2025 INFLUENZA VACCINE (#1) 2025 02/02/2024 [...] on patient's age to complete this topic Insurance MEDICAID HEALTHY BLUE [employer]M * Guarantor: Malena Herrera Account Type Relation to Patient Date of Phone Billing Address Third Republican Liability Self 1990 [id number] [place] [address] T[employer] TH[employer] LIABILITY [place] [address] Advance Directives * Full Code (Latest Code Status on File) Date Activated Date Inactivated Comments 07/31/2025 10:55 PM 08/07/2025 9:57 PM * Full Code Date Activated Date Inactivated Comments 07/30/2025 9:54 PM 07/31/2025 10:55 PM Care Teams Safety Technician Relationship Specialty Start Date End Date Provider, No Pcp PCP - General 07/30/25
--- NOTE | 2025-11-09 07:27 | W.ED.ABDPA2 ---
HPI - Abdominal Pain General: Chief Complaint: Abdominal Pain Stated Complaint: n/v, abd pain Time Seen by Provider: 11/09/25 07:27 History of Present Illness: Is a 35-year-old female with a history of ADHD, anxiety and depression and also history of kidney stones in the past who presents the emergency room with left flank pain, nausea vomiting and fevers. She said she has been sick overnight. She is noticed her urine looks bloody. No diarrhea. No chest pain. She has had nausea vomiting. She reports fevers at home but is afebrile here Related Data Home Medications ?Medication ?Instructions ?Recorded ?Confirmed ferrous sulfate 325 mg (65 mg 325 mg PO DAILY 10/20/25 10/20/25 iron) tablet (iron) Previous Rx's ?Medication ?Instructions ?Recorded fluoxetine 20 mg capsule 20 mg PO .q am #30 caps 10/20/25 Allergies Allergy/AdvReac Type Severity Reaction Status Date / Time ciprofloxacin (From Cipro) AdvReac Severe ALGY-Difficulty Verified 10/25/25 16:14 Breathing Review of Systems Narrative: Constitutional symptoms: Negative except as documented in HPI. Skin symptoms: Negative except as documented in HPI. Eye symptoms: Negative except as documented in HPI. ENMT symptoms: Negative except as documented in HPI. Respiratory symptoms: Negative except as documented in HPI. Cardiovascular symptoms: Negative except as documented in HPI. Gastrointestinal symptoms: Negative except as documented in HPI. Genitourinary symptoms: Negative except as documented in HPI. Musculoskeletal symptoms: Negative except as documented in HPI. Neurologic symptoms: Negative except as documented in HPI. Psychiatric symptoms: Negative except as documented in HPI. Endocrine symptoms: Negative except as documented in HPI. [facility] ED PFSH: Medical History (Updated 11/09/25 @ 10:45 by Gini Martinez MD) Psychiatric care ADHD (attention deficit hyperactivity disorder) Physical Exam Narrative: EXAM NARRATIVE: General: Alert, no acute distress. Skin: Warm, dry. Head: Normocephalic, atraumatic. Neck: Supple, trachea midline. Eye: Extraocular movements are intact. Ears, nose, mouth and throat: Dry mucosa Cardiovascular: Regular, Normal peripheral perfusion. Respiratory: Lungs are clear to auscultation, respirations are non-labored, breath sounds are equal, Symmetrical chest wall expansion. Gastrointestinal: Soft, left flank pain, Non distended Musculoskeletal: Normal ROM, no deformity. Neurological: Alert and oriented, No focal neurological deficit observed. Psychiatric: Cooperative, appropriate mood & affect. Course Vital Signs: Vital signs: Vital Signs Temperature 97.5 F L 11/09/25 07:26 Pulse Rate 62 11/09/25 09:30 Respiratory Rate 18 11/09/25 07:26 Blood Pressure 105/66 11/09/25 09:30 Pulse Oximetry 95 11/09/25 09:30 Oxygen Delivery Me thod Room Air 11/09/25 09:30 MDM - Abdominal Pain Medical Decision Making Medical decision making Patient's reason for coming to the emergency room: Flank pain, nausea vomiting and fever Social determinants: Patient is unemployed I reviewed the patient's medical record. Patient has a history of depression, anxiety, ADHD and kidney stones I reviewed the patient's current home meds Fluoxetine is only listed chronic medication Alternate historians: None Differential diagnosis including but not limited to and based on the above HPI, review of systems and physical exam: In this patient with flank pain would have concern for: Ureterolithiasis. Urinary tract infection. Appendicitis. Cholecystitis. Musculoskeletal / back pain. Pyelonephritis. Orders placed to evaluate differential diagnosis based on the above differential, HPI and physical exam Lab Review: Laboratory results were reviewed and interpreted by myself the emergency room physician. Leukocytosis with a white count 11,000. Lactic acidosis with a lactate of 3.5. No anemia. No renal failure. Urinalysis is positive for hematuria but also appears infected with a white count of 21-50, nitrate positive. Leukocyte esterase positive. For plus bacteria positive also appears quite concentrated which would indicate dehydration CT of the abdomen pelvis with contrast: Mild left hydro with 3 mm stone at the UV junction. This was reviewed and interpreted by myself the emergency room physician. I also reviewed the radiology report. Assessment of risk: Level of risk: Moderate risk patient given that she has a stone and reports of fevers. Risk for sepsis Hospitalization considerations: Patient is being transferred to [facility] in [place] for possible intervention by urology. Reexamination: Patient remained stable. No increased work of breathing. No altered mental status. No focal motor deficits. Pain has been a bit difficult to control. Consultation: I spoke with Dr. Christiansen with urology at [place]. He recommends transfer. If stone passes then she will not need a stent but if it does not then she will. Consultation: I spoke with the MACHINE BUILDER on-call for the hospitalist service at [facility] who is accepted the patient in transfer. Assessment and plan: Ureterolithiasis Urinary tract infection Report of fever. Dehydration -Possible sepsis. Mild leukocytosis. Elevated lactic acid. However vitals do not indicate sepsis. Treated empirically as such however. -2.5 L normal saline bolus. Fluid volumes based on ideal body weight. - Cefepime administered -Sepsis quality measures. -Lactic acid with a reflex was ordered. -Blood cultures were ordered. ?I reevaluated the patient's volume status after sepsis fluids were given. -I discussed the patient with the accepting physician on-call. - Discussed findings and plan with patient. Answered any questions. - All laboratory values were reviewed and interpreted personally by myself, the ER physician - All imaging was reviewed and interpreted personally by myself, the ER physician. - Evaluation and treatment of this problem were appropriate in the emergency setting Critical Care: -I spent a total of 36 minutes of critical care time managing the patient, independent of any other practitioner. -The time involved in the performance of separately reportable procedures was not counted towards critical care time. Lab Data 11/09/25 07:42 11/09/25 07:42 Labs/Radiology: Radiology Impressions Abdomen/Pelvis CT 11/09/25 07:30 IMPRESSION: 1. Mild LEFT hydroureteronephrosis secondary to a 3 mm ureteral calcification at the UV junction. 2. Prior appendectomy. 3. Unremarkable appearance of the partial RIGHT colectomy. 4. No free air or abscess. Laboratory Results WBC 11.12 10^3/uL (3.29-11.43) 11/09/25 07:42 RBC 4.69 10^6/uL (3.85-5.65) 11/09/25 07:42 Hgb 14.00 g/dL (11.27-16.99) 11/09/25 07:42 Hct 41.8 % (36-47) 11/09/25 07:42 MCV 89.1 fl (85-98) 11/09/25 07:42 MCH 29.9 pg (27-33) 11/09/25 07:42 MCHC 33.5 g/dL (30-55) 11/09/25 07:42 RDW 11.9 % (12.1-15.1) L 11/09/25 07:42 Plt Count 274 10^3/cmm (157-399) 11/09/25 07:42 MPV 10.7 fL (7.4-10.4) H 11/09/25 07:42 Neut % (Auto) 80.4 % 11/09/25 07:42 Lymph % (Auto) 14.1 % 11/09/25 07:42 [place] % (Auto) 4.6 % 11/09/25 07:42 Eos % (Auto) 0.3 % 11/09/25 07:42 Baso % (Auto) 0.3 % 11/09/25 07:42 Neut # (Auto) 8.95 10^3/uL (1.8-7.7) H 11/09/25 07:42 Lymph # (Auto) 1.6 10^3/uL (0.8-4.8) 11/09/25 07:42 [place] # (Auto) 0.5 10^3/uL (0.2-0.9) 11/09/25 07:42 Eos # (Auto) 0.0 10^3/uL (0.0-0.8) 11/09/25 07:42 Baso # (Auto) 0.0 10^3/uL (0.0-0.1) 11/09/25 07:42 Nucleated RBC % (auto) 0 % 11/09/25 07:42 Nucleated RBCs # 0.0 /100WBC 11/09/25 07:42 Sodium 138 mmol/L (136-145) 11/09/25 07:42 Potassium 3.5 mmol/L (3.5-5.1) 11/09/25 07:42 Chloride 102 mmol/L (98-107) 11/09/25 07:42 Carbon Dioxide 21 mmol/L (22-29) L 11/09/25 07:42 Anion Gap 18.5 (5-19) 11/09/25 07:42 BUN 11 mg/dL (6-20) 11/09/25 07:42 Creatinine 0.8 mg/dL (0.5-0.9) 11/09/25 07:42 GFR Calculation 81.6 mL/min (90-130) L 11/09/25 07:42 Glucose 136 mg/dL (65-115) H 11/09/25 07:42 Calculated Osmolality 287 mOsm/kg (285-295) 11/09/25 07:42 Lactic Acid 3.4 mmol/L (0.5-2.2) H 11/09/25 07:42 Lactic Acid (Sepsis) 1.5 mmol/L (0.5-2.2) 11/09/25 10:02 Calcium 9.4 mg/dL (8.5-10.5) 11/09/25 07:42 Total Bilirubin 0.5 mg/dL (0.15-1.2) 11/09/25 07:42 AST 28 U/L (0-32) 11/09/25 07:42 ALT 33 U/L (0-33) 11/09/25 07:42 Alkaline Phosphatase 139 U/L (35-105) H 11/09/25 07:42 Total Protein 7.2 g/dL (6.6-8.7) 11/09/25 07:42 Albumin 4.3 g/dL (3.5-5.2) 11/09/25 07:42 Globulin 2.9 g/dL (1.3-4.6) 11/09/25 07:42 Lipase 26 U/L (13-60) 11/09/25 07:42 HCG, Qual Negative (Negative) 11/09/25 07:42 Urine Color Red (Yellow) A 11/09/25 07:48 Urine Appearance Turbid (CLEAR) A 11/09/25 07:48 Urine pH 5.0 (5-7) 11/09/25 07:48 Ur Specific [place] 1.053 (1.005-1.030) H 11/09/25 07:48 Urine Protein 2+ (Negative) A 11/09/25 07:48 Urine Glucose (UA) Negative (Normal) 11/09/25 07:48 Urine Ketones Negative (Negative) 11/09/25 07:48 Urine Blood 3+ (Negative) A 11/09/25 07:48 Urine Nitrate Positive (Negative) A 11/09/25 07:48 Urine Bilirubin 2+ (Negative) H 11/09/25 07:48 Urine Urobilinogen 0.2 mg/dL (Negative) 11/09/25 07:48 Ur Leukocyte Esterase 2+ (Negative) A 11/09/25 07:48 Urine RBC >100 /hpf (0-2) H 11/09/25 07:48 Urine WBC 21-50 /hpf (0-5) H 11/09/25 07:48 Ur Squamous Epith Cells 11-20 /hpf (0-5) H 11/09/25 07:48 Amorphous Sediment Not Reportable 11/09/25 07:48 Urine Bacteria 3+ /hpf (NONE) H 11/09/25 07:48 Hyaline Casts 9.36 /lpf 11/09/25 07:48 Influenza A (PCR) Negative (Negative) 11/09/25 07:48 Influenza Type B (PCR) Negative (Negative) 11/09/25 07:48 RSV (PCR) Negative (Negative) 11/09/25 07:48 SARS-CoV-2 (PCR) Negative (Negative) 11/09/25 07:48 All radiology interpretation(s) finalized by discharge Discharge Plan Discharge Patient Disposition: Xfer Short-Term Hosp Clinical Impression: Ureterolithiasis, Urinary tract infection, Lactic acidosis, Dehydration Condition: Stable Patient Instructions: Abdominal Pain (ED) Print Language: Lao Coding Level of Care Code ED Websphere Portal Architect for Mamadou Reyes
--- NOTE | 2025-11-09 07:30 | CT_ITS ---
WS: [id number] CT ABDOMEN AND PELVIS WITH CONTRAST HISTORY: Abdominal pain, left-sided abdominal pain, possible hematuria. TECHNIQUE: Imaging performed of the abdomen and pelvis with IV contrast. Single phase imaging of the abdomen. Coronal and sagittal reformats are submitted. All CT scans at [facility] use at least one of these dose optimization techniques: automated exposure control; mA and/or kV adjustment per patient size (includes targeted exams where dose is matched to clinical indication); or iterative reconstruction. IV CONTRAST: Omnipaque 350; 100 mL IV. Oral contrast: No DLP: 681.43 mGy.cm COMPARISON: 08/29/2025 Lower thorax: Lung bases are clear. Heart is normal size. Small hiatal hernia. Liver/biliary system: Normal size liver. 3 mm cyst in the posterior RIGHT lobe. Normal portal vein. Gallbladder: Normal. No gallstones or wall thickening. No pericholecystic fluid. Pancreas: Normal size pancreas and pancreatic duct. No adjacent inflammation. Spleen: Normal size spleen. No mass or infarct. Adrenal glands: Normal. Right kidney: Normal. Left kidney: Normal size kidney. Small cyst in the upper pole. Mild dilatation of the LEFT renal pelvis and ureter. 3 mm calcification at the UV junction. Aorta: Normal. Lymphadenopathy: None. Free fluid: None. GI tract: Prior appendectomy and partial RIGHT colectomy. Anastomotic sutures in the ascending colon are identified in uncomplicated. No obstructive pattern. There are a few scattered diverticula in the sigmoid colon. Abdominal wall: Postsurgical changes along the anterior abdominal wall. Previously described fluid collection, probably hematoma along the RIGHT lateral abdominal wall has nearly resolved. Pelvis: No free fluid or adenopathy within the pelvis. Uterus and ovaries appear intact. Bones: Unremarkable. CT/CT abdomen pelvis w con* [id number] IMPRESSION: 1. Mild LEFT hydroureteronephrosis secondary to a 3 mm ureteral calcification at the UV junction. 2. Prior appendectomy. 3. Unremarkable appearance of the partial RIGHT colectomy. 4. No free air or abscess.
[2025-11-09] MEDS: HYDROmorphone 0.5 MG/0.5 ML INJ 1 MG IVP ×3 (07:42→18:42)
[2025-11-09] MEDS: ondansetron 2 mg/ML SDV 2 mL 8 MG IVP (07:42)
[2025-11-09 08:08] LABS: Hematocrit 41.8 % (36-47); Hemoglobin 14.00 g/dL (11.27-16.99); Mean Corpuscular HGB Conc 33.5 g/dL (30-55); Mean Corpuscular Hemoglobin 29.9 pg (27-33); Mean Corpuscular Volume 89.1 fl (85-98); Nucleated Red Blood Cells % 0 %; Platelet Count 274 10^3/cmm (157-399); Red Blood Count 4.69 10^6/uL (3.85-5.65); White Blood Count 11.12 10^3/uL (3.29-11.43)
[2025-11-09 08:20] LABS: Glucose Urine UA Negative (Normal); Nitrate Urine Positive (Negative)
[2025-11-09 08:29] LABS: Alanine Aminotransferase 33 U/L (0-33); Albumin Level 4.3 g/dL (3.5-5.2); Alkaline Phosphatase 139 U/L (35-105); Anion Gap 18.5 (5-19); Aspartate Amino Transferase 28 U/L (0-32); Blood Urea Nitrogen 11 mg/dL (6-20); Calcium 9.4 mg/dL (8.5-10.5); Carbon Dioxide 21 mmol/L (22-29); Chloride 102 mmol/L (98-107); Globulin 2.9 g/dL (1.3-4.6); Glucose 136 mg/dL (65-115); Lactic Sepsis W/Reflex 3.4 mmol/L (0.5-2.2); Lipase 26 U/L (13-60); Osmolality Calculated 287 mOsm/kg (285-295); Potassium 3.5 mmol/L (3.5-5.1); Sodium 138 mmol/L (136-145); Total Protein 7.2 g/dL (6.6-8.7)
[2025-11-09 08:42] LABS: HCG, Serum Qual Negative (Negative)
[2025-11-09 08:49] LABS: Respiratory Syncytial Virus Ce NEGATIVE (Negative); SARS-CoV-2 PCR NEGATIVE (Negative)
[2025-11-09 08:54] LABS: Specific Gravity, Urine 1.053 (1.005-1.030); UA Slide Review UA Slide Review Perf
[2025-11-09] MEDS: iohexol 350 mg/mL 500 mL Btl (per mL) IV (09:06)
[2025-11-09] MEDS: cefepime 2,000 mg SDV 2000 MG IVP (09:14)
[2025-11-09 09:47] LABS: Reflex Lactate Order REFLEX LACTIC ORDERD
[2025-11-09 10:35] LABS: Lactic Acid level (Lactate) 1.5 mmol/L (0.5-2.2)
[2025-11-09] MEDS: ondansetron 2 mg/ML SDV 2 mL 4 MG IVP (11:25)
[2025-11-09] MEDS: LORazepam 2 mg/mL INJ 1 mL 0.5 MG IVP (13:29)
--- NOTE | 2025-11-09 17:15 | PC.NURSE ---
REPORT CALLED TO DESIREE Goodman RN AT [facility] AT [phone]. ACCEPTING NURSE VERBALIZED UNDERSTANDING OF REPORT AND DENIED ANY FURTHER QUESTIONS.
== END 2025-11-09 18:57 | disposition short-term general hospital (02) ==
PROVIDERS: Emergency Provider Emergency Medicine
DX: N20.1 Calculus of ureter (principal); N39.0 Urinary tract infection, site not specified; E87.20 Acidosis, unspecified; E86.0 Dehydration; Z11.52 Encounter for screening for COVID-19; Z87.442 Personal history of urinary calculi
CPT/HCPCS: 36415; 55100; 74177; 80053; 81001; 83605; 83690; 84703; 85025; 87040; 87086; 87637; 96361; 96375; 96376; 99285; J0692; J1171; J1885; J2060; J2405; J7030; J7040